=== PATIENT | male | born 1965 | race Caucasian/White ===

== ENCOUNTER 2016-02-21 12:06 | Inpatient (IN) ==
[2016-02-21] MEDS ORDERED: SODIUM CHLORIDE 0.9% 1,000 ML IV STA (12:22)
[2016-02-21] MEDS ORDERED: DICYCLOMINE 20 MG/2 ML AMP IM ONE ×2 (12:30→13:18)
[2016-02-21] MEDS ORDERED: SODIUM CHLORIDE 0.9% 2,000 ML IV STA (12:30)
[2016-02-21] MEDS ORDERED: METOCLOPRAMIDE 10 MG/2 ML VIAL IV STA (12:30)
[2016-02-21] MEDS ORDERED: PANTOPRAZOLE 40 MG VIAL IV STA (12:30)
[2016-02-21] MEDS ORDERED: ONDANSETRON 4 MG/2 ML VIAL IV STA (12:30)
[2016-02-21] MEDS ORDERED: LEVOFLOXACIN INJ 750 MG in PREMIX 1 EACH IV STA (12:34)
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
[2016-02-21] MEDS ORDERED: metroNIDAZOLE INJ 500 MG in PREMIX 1 EACH IV STA (12:42)
--- NOTE | 2016-02-21 13:00 | CT Report ---
CT head/brain wo con Indication: Altered mental status. Comparison: Head CT 11/06/2015. Technique: CT of the brain was performed without administration of intravenous contrast. Findings: There is no evidence of acute intracranial hemorrhage, mass, or infarction. Ventricles appear within normal limits. The basal cisterns are patent. No significant abnormality is demonstrated to involve the posterior fossa or cerebellum. Orbits and globes demonstrate no evidence of significant pathology. The paranasal sinuses are clear. No significant abnormality is demonstrated to involve the mastoid air cells. The calvarium and overlying soft tissues demonstrate no evidence of acute pathology. Impression: 1. No CT evidence of acute intracranial pathology. 02/21/2016 12:56 PM PROCEDURE INTERPRETED AT [facility] DEPARTMENT OF RADIOLOGY Final Report Signed by: Dr. Hong Fajardo
[2016-02-21 13:15] LABS: Basophils % 0.1 % (0.0-0.8); Eosinophils # 0.1 10*3/uL (0.0-0.87); Eosinophils % 0.3 % (0.00-10.9); Hematocrit 21.2 VOL% (42.0-52.0); Hemoglobin 7.4 GM/DL (14.0-18.0); Immature Granulocytes % 1.9 %; Lymphocytes # 2.2 10*3/uL (1.4-4.0); Lymphocytes % 8.4 % (21.2-54.2); Mean Corpuscular HGB Conc 34.9 GM/DL (32-36); Mean Corpuscular Hemoglobin 35 PG (27-34); Mean Corpuscular Volume 101.4 FL (87-102); Mean Platelet Volume 14.3 FL (9.6-12.0); Monocytes # 1.5 10*3/uL (0.11-0.8); Monocytes % 5.8 % (1.7-12.7); NRBC # 0.11 10*3/uL; Neutrophils # 21.5 10*3/uL (1.4-7.4); Neutrophils % 83.5 % (38.7-73.9); Platelet Count 123 10*3/uL (130-400); Red Blood Count 2.09 10*6/uL (3.8-5.5); Red Cell Distribution Width 20.9 % (9.3-17.3); White Blood Count 25.8 10*3/uL (4.5-13.71)
[2016-02-21] MEDS ORDERED: METOCLOPRAMIDE 10 MG/2 ML VIAL ONE (13:18)
[2016-02-21] MEDS ORDERED: PANTOPRAZOLE 40 MG VIAL IV ONE (13:18)
[2016-02-21] MEDS ORDERED: ONDANSETRON 4 MG/2 ML VIAL ONE (13:18)
--- NOTE | 2016-02-21 13:19 | EKG Report ---
Stationary ECG Study [facility] ER Test Date: 02/21/2016 1:17:13 PM Pat Name: MANJU SCHMID Department: Room: 130 Gender: M Conversion Worker: ELISABETH : 1965 Requested by: Skip Harris Order Number: [id number] Cynthia MD: PARAM GOODMAN Intervals Parks Rate: 89 P: 77 ME: 178 QRS: 90 QRSD: 99 T: 230 QT: 374 QTc: 421 Interpretive Statements SINUS RHYTHM ST DEVIATION AND MODERATE T-WAVE ABNORMALITY, CONSIDER ANTEROLATERAL ISCHEMIA ST DEVIATION AND MODERATE T-WAVE ABNORMALITY, CONSIDER INFEROLATREAL ISCHEMIA Electronically Signed On 02-22-16 10:42:35 [employer] by PARAM GOODMAN [email or web address]
[2016-02-21] MEDS ORDERED: metroNIDAZOLE 500 MG/100 ML PREMIX IV ONE (13:30)
[2016-02-21 13:32] LABS: Albumin 2.4 G/DL (3.4-5.0); Bilirubin,Total 1.9 MG/DL (0.2-1.0); Osmolality,Calculated 344.3 MOS/KG (273-304); Potassium 2.7 MMOL/L (3.5-5.1); Total Protein 6.5 G/DL (6.4-8.3)
[2016-02-21 13:33] LABS: Troponin I Only 0.198 NG/ML (0.00-0.045)
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
[2016-02-21 13:46] LABS: CKMB % 1.5 %
[2016-02-21 14:09] LABS: Lactic Acid 3.8 MMOL/L (0.4-2.0)
[2016-02-21] MEDS ORDERED: LEVOFLOXACIN INJ 150 ML IV ONE (14:27)
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
[2016-02-21] MEDS: SODIUM CHLORIDE 0.9% 1,000 ML IV ONE ×2 (14:54→15:39)
[2016-02-21] MEDS ORDERED: ONDANSETRON 4 MG/2 ML VIAL IV PRN (15:40)
[2016-02-21] MEDS ORDERED: POTASSIUM CHLORIDE INJ 20 MEQ in SODIUM CHLORIDE 0.9% 1,000 ML IV SCH (15:40)
[2016-02-21] MEDS ORDERED: FOLIC ACID 5 MG/1 ML VIAL IV SCH (15:40)
[2016-02-21] MEDS ORDERED: SODIUM CHLORIDE 0.9% 250 ML IV PRN (15:40)
[2016-02-21] MEDS ORDERED: ACETAMINOPHEN 325 MG TABLET PO PRN (15:40)
--- NOTE | 2016-02-21 15:47 | Ultrasound Report ---
US renal Bilateral Indication: Acute versus chronic renal failure. Comparison: None. Technique: Using transcutaneous probe, routine renal ultrasound was performed. Ultrasound images were captured and stored. Findings: Right kidney measures 11 cm in craniocaudal dimension. Left kidney measures 10.7 cm in craniocaudal dimension. No mass, hydronephrosis, or perinephric fluid collection is demonstrated to involve either kidney. There is a small punctate focus of echotexture within the lower pole medulla of the right kidney that may reflect a small calcification. Incidental note is made that the liver parenchyma demonstrates diffusely hyperechoic echotexture compared to the right renal cortex compatible with hepatic steatosis. Impression: 1. No evidence of obstructive uropathy. 2. Findings compatible with hepatic steatosis. 02/21/2016 3:43 PM PROCEDURE INTERPRETED AT [facility] DEPARTMENT OF RADIOLOGY Final Report Signed by: Dr. Hong Fajardo
[2016-02-21 16:16] LABS: Ammonia 179 UMOL/L (11-32)
[2016-02-21] MEDS: THIAMINE 200 MG/2 ML VIAL IV SCH (16:20)
[2016-02-21] MEDS: metroNIDAZOLE INJ 500 MG in PREMIX 1 EACH IV SCH (16:21)
[2016-02-21] MEDS: POTASSIUM CHLORIDE RIDER 10 MEQ in PREMIX 1 EACH IV SCH ×3 (16:22→18:56)
[2016-02-21 16:23] LABS: Hematocrit 18.5 VOL% (42.0-52.0)
[2016-02-21] MEDS: PANTOPRAZOLE 40 MG VIAL IV SCH ×2 (16:23→21:52)
[2016-02-21 16:25] LABS: Hemoglobin 6.2 GM/DL (14.0-18.0)
[2016-02-21 16:26] LABS: Magnesium 1.4 MG/DL (1.8-2.4); Thyroid Stimulating Hormone 3.96 uIU/ml (0.358-3.74)
[2016-02-21 16:35] LABS: INR 1.6; PT Patient Result 16.9 SECS; Partial Thromboplastin Time 32.3 SECS (0-40)
[2016-02-21] MEDS ORDERED: MAGNESIUM SULF RIDER 4 GM in PREMIX 1 EACH IV ONE (16:48)
[2016-02-21] MEDS: CLORAZEPATE 7.5 MG TABLET PO SCH ×2 (17:44→21:52)
[2016-02-21] MEDS: SODIUM BICARB INJ 100 MEQ, POTASSIUM CHLORIDE INJ 20 MEQ in DEXTROSE 5% 1,000 ML IV SCH (17:48)
[2016-02-21] MEDS: FOLIC ACID INJ 1 MG in SYRINGE 1 EACH IV SCH (17:49)
[2016-02-21] MEDS: FLUCONAZOLE INJ 200 MG in PREMIX 1 EACH IV SCH (17:49)
[2016-02-21 18:01] LABS: Apearance,Urine CLOUDY (Clear); Bilirubin,Urine Negative (Negative); Blood, Urine Moderate mg/dL (Negative); Glucose,Urine (UA) Negative (Negative); Ketones,Urine 5 mg/dL (Negative); Nitrite,Urine Negative (Negative); Protein,Urine 30 MG/DL; RBC,Urine 41 /HPF (0-4); Squamous Epithelial Cell,Urine Few /HPF (0-10); Urine Color Amber (Yellow); Urine Urobilinogen < 2.0 EU/DL (0.2-1.0); WBC,Urine 381 /HPF (0-6)
--- NOTE | 2016-02-21 18:48 | XRay Report ---
XR femur LT Indication: Left hip pain. Comparison: AP pelvis 02/21/2016. Abdominal series 09/30/2015. Fluoroscopic images of the left hip 09/06/2014. Technique: AP and lateral images of the left femur were submitted. Findings: Prior repair of the left femoral neck has occurred however there's been interval surgical resection osteolyses of the femoral neck with only a small amount femoral head remains articulated within the femoral acetabular joint. This appearance has not significantly changed since September of 2015. Note is made on CT performed at that time, soft tissue attenuation was present in the region of the repaired fracture. No definite erosive changes are noted on the current study. Impression: 1. Little change in the appearance of the left hip since September of 2015. Differential considerations include osteoarthritis is, surgical resection of the femoral neck, possibly pathologic process stable since September. 02/21/2016 6:43 PM PROCEDURE INTERPRETED AT [facility] DEPARTMENT OF RADIOLOGY Final Report Signed by: Dr. Hong Fajardo
--- NOTE | 2016-02-21 19:03 | XRay Report ---
XR abdomen complete w decub Indication: GI bleed Comparison: Abdominal series 02/21/2016; 1257 hrs. Technique: Supine AP abdomen as well as left lateral decubitus image of the abdomen was submitted. Findings: Lung bases are clear. No free intraperitoneal air is suggested. No organomegaly suggested. The bowel gas pattern demonstrates no evidence of acute pathology. Bones and soft tissues demonstrate no evidence of acute pathology. Impression: 1. No active process is demonstrated within the abdomen or pelvis. 02/21/2016 6:42 PM PROCEDURE INTERPRETED AT [facility] DEPARTMENT OF RADIOLOGY Final Report Signed by: Dr. Hong Fajardo
[2016-02-21] MEDS: NOREPINEPHRINE 8 MG in SODIUM CHLORIDE 0.9% 242 ML IV SCH (19:22)
[2016-02-21 20:15] LABS: Osmolality,Calculated 342.7 MOS/KG (273-304); Potassium 2.7 MMOL/L (3.5-5.1)
[2016-02-21 20:18] LABS: Calcium 5.7 MG/DL (8.5-10.1)
[2016-02-21] MEDS ORDERED: CALCIUM GLUCONATE 2,000 MG in SODIUM CHLORIDE 0.9% 100 ML IV ONE (20:42)
[2016-02-21 22:17] LABS: Hematocrit 23.9 VOL% (42.0-52.0)
[2016-02-21 22:23] LABS: Hemoglobin 8.3 GM/DL (14.0-18.0)
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
[2016-02-22] MEDS: HYDROmorphone 2 MG/1 ML VIAL IV PRN ×5 (00:18→23:41)
[2016-02-22] MEDS: metroNIDAZOLE INJ 500 MG in PREMIX 1 EACH IV SCH ×4 (00:19→23:40)
[2016-02-22] MEDS: SODIUM BICARB INJ 100 MEQ, POTASSIUM CHLORIDE INJ 20 MEQ in DEXTROSE 5% 1,000 ML IV SCH ×3 (02:23→18:19)
[2016-02-22 04:46] LABS: Hematocrit 28.2 VOL% (42.0-52.0); Hemoglobin 9.5 GM/DL (14.0-18.0)
[2016-02-22 04:57] LABS: Basophils % 0.1 % (0.0-0.8); Eosinophils % 0.2 % (0.00-10.9); Hematocrit 27.9 VOL% (42.0-52.0); Hemoglobin 9.5 GM/DL (14.0-18.0); Immature Granulocytes % 1.1 %; Immature Granulocytes Absolute 0.24 #; Lymphocytes # 1.2 10*3/uL (1.4-4.0); Lymphocytes % 5.8 % (21.2-54.2); Mean Corpuscular HGB Conc 34.1 GM/DL (32-36); Mean Corpuscular Hemoglobin 30 PG (27-34); Mean Corpuscular Volume 88.9 FL (87-102); Monocytes # 1.1 10*3/uL (0.11-0.8); Monocytes % 5.4 % (1.7-12.7); NRBC # 0.07 10*3/uL; Neutrophils # 18.6 10*3/uL (1.4-7.4); Neutrophils % 87.4 % (38.7-73.9); Platelet Count 118 10*3/uL (130-400); Red Blood Count 3.14 10*6/uL (3.8-5.5); White Blood Count 21.3 10*3/uL (4.5-13.71)
[2016-02-22 05:26] LABS: Albumin 2.1 G/DL (3.4-5.0); Bilirubin,Total 2.9 MG/DL (0.2-1.0); Calcium 6.5 MG/DL (8.5-10.1); Osmolality,Calculated 343.7 MOS/KG (273-304); Total Protein 5.7 G/DL (6.4-8.3)
[2016-02-22 05:45] LABS: Potassium 2.4 MMOL/L (3.5-5.1)
[2016-02-22 05:59] LABS: Anisocytosis 2+; Burr Cells 1+; Hypochromasia 2+; Lymphocytes 5 % (20-55); Macrocytosis 2+; Microcytosis 1+; Ovalocytes 1+; Platelet Estimate Decreased; Segmented Neutrophils 90 % (50-85); Target Cells 2+; Total Cells Counted 100
[2016-02-22] MEDS ORDERED: POTASSIUM CHLORIDE 20 MEQ TABLET PO ONE (07:27)
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
[2016-02-22] MEDS: NOREPINEPHRINE 8 MG in SODIUM CHLORIDE 0.9% 242 ML IV SCH ×2 (08:00→22:55)
[2016-02-22] MEDS: POTASSIUM CHLORIDE RIDER 10 MEQ in PREMIX 1 EACH IV SCH ×7 (08:00→15:30)
[2016-02-22 09:24] LABS: Hematocrit 33.3 VOL% (42.0-52.0); Hemoglobin 11.5 GM/DL (14.0-18.0)
[2016-02-22] MEDS: RIFAXIMIN 550 MG TABLET PO SCH ×2 (09:49→21:56)
[2016-02-22] MEDS: LACTULOSE 20 GM/30 ML UDCUP PO SCH ×3 (09:49→21:00)
[2016-02-22] MEDS: PANTOPRAZOLE 40 MG VIAL IV SCH ×2 (09:49→21:56)
[2016-02-22] MEDS: THIAMINE 200 MG/2 ML VIAL IV SCH (09:50)
[2016-02-22] MEDS: FOLIC ACID INJ 1 MG in SYRINGE 1 EACH IV SCH (09:50)
[2016-02-22] MEDS: NYSTATIN POWDER 15 GM BOTTLE TOP SCH ×3 (10:56→23:42)
[2016-02-22] MEDS: MEROPENEM 500 MG in SODIUM CHLORIDE 0.9% 100 ML IV SCH ×2 (10:56→21:56)
--- NOTE | 2016-02-22 10:58 | Nephrology Progress Note ---
Nephrology - PN: Subj Interval history: He is significantly more alert today. However he is slow to respond. Exam (PN)-Nephrology - Vital Signs Vital signs: Period Temp Pulse Resp BP Sys/Jacob Pulse Ox Last 24 Hr 95.8 F-98.8 F 81-115 10-24 55-174/38-140 100-100 Exam: Gen.: Alert but mildly confused ENT: Pupils equal round reactive to light. EOMs intact. Neck: Supple. No JVD or bruit. Cardiovascular: Regular rate and rhythm. No murmur rub or gallop Lungs: Few scattered rhonchi Abdomen: Soft. Nontender. Positive bowel sounds. No organomegaly Extremities: No edema - Lab 02/22/16 09:10 02/22/16 02:45 Most recent lab results Calcium 6.5 MG/DL (8.5-10.1) L 02/22/16 02:45 Magnesium 2.5 MG/DL (1.8-2.4) H 02/22/16 02:41 Assessment and Plan (1) Acute renal failure Status: Acute Assessment and plan: 50-year-old man admitted with: * Acute renal failure. This is due to hypotension and volume depletion. Renal function is slightly better today * Metabolic acidosis. Continue IV bicarbonate * Hypokalemia. Continue supplement * Hypertension * Anemia. Improved after transfusion * GI bleeding * Alcohol abuse. Continue withdrawal prophylaxis Current Visit: No (2) Severe dehydration Status: Acute Current Visit: Yes (3) Alcoholic encephalopathy Status: Acute Current Visit: No (4) Diarrhea Status: Acute Current Visit: No (5) Hypokalemia Status: Acute Current Visit: No (6) Hypotension Status: Acute Current Visit: No (7) Melena Status: Acute Current Visit: No (8) Acute blood loss anemia Status: Resolved Current Visit: No Specialty Discharge - Follow Up or Referrals - Discharge Medications No Action Lisinopril [Prinivil] 10 mg PO DAILY tablet chlordiazePOXIDE [Librium] 25 mg PO Q6H #12 capsule Pantoprazole Tab [Protonix Tab] 40 mg PO DAILY #30 tablet
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
--- NOTE | 2016-02-22 12:06 | Hospitalist Progress Note ---
Assessment and Plan (1) Septic shock Status: Acute Assessment and plan: cont ns at 150 ml/hr, change to meropenem as we dont have a source, blood cultures pending, stool studies negative, dr Michael to see in am, cont pressors , WBC is down to 21. Current Visit: Yes (2) Acute on chronic renal failure Status: Acute Assessment and plan: renal us shows normal sized kidneys, improving with IV hydration but his potassium remains low. Dr. Chamorro following. Current Visit: Yes (3) Delirium tremens Status: Acute Assessment and plan: tranxene decreased due to renal failure. Low magnesium replaced yesterday repeat level normal at 2.5. Continue thiamine and folate IV Current Visit: Yes (4) Severe dehydration Status: Acute Assessment and plan: severe dehydration, continue aggressive NS Current Visit: Yes (5) Fracture of femoral neck, left Status: Acute Assessment and plan: Er MD reports displacement, Dr Senior to discuss surgery options Current Visit: No (6) Intractable diarrhea Status: Acute Assessment and plan: Stool is negative for C. difficile. Stool is also negative for enteric pathogens. Stool is positive for blood. Current Visit: No (7) Acute blood loss anemia Status: Resolved Assessment and plan: Dr. Rinaldi believes patient has an upper GI bleed. Patient received 3 units of PRBC, continue Protonix IV Current Visit: No (8) Hypokalemia Status: Resolved Assessment and plan: Gave patient another 60 mEq of IV potassium and 40 mEq p.o. 1 and will continue supplementing his potassium through his IV fluids. Current Visit: No Hospitalist: Subjective Interval history: Patient's feeling better today and remembers talking to be yesterday. His sister made him a DNR last night. He is still on pressors this morning. We will continue the IV hydration. Dr. Senior and I spoke about his case and Dr. Rinaldi and I discussed his case. Dr. Senior told him if he can get over this and agree to do rehab they could actually replace his hip. All his pain is in his hip. No diarrhea overnight. Source of sepsis not known. Exam - Constitutional Vitals: Period Temp Pulse Resp BP Sys/Jacob Pulse Ox Last 24 Hr 95.8 F-98.8 F 81-115 10-24 55-174/38-140 100-100 Exam: HR-RRR lungs-ctab GI-+bs, soft and nt neuro moving all extremities, alert and oriented times 2 psych normal mood and flat affect general no acute distress Results - Labs CBC & BMP: 02/22/16 09:10 02/22/16 02:45 Lab Results: I have reviewed the past 24 hour labs Labs: Stool is negative for C. difficile, but positive for occult blood, no enteric pathogens noted., Blood cultures pending, urine culture negative. Lactic acid remains elevated 3.5 - Diagnostic Findings Procedure: KUB x-ray: report reviewed by me (No obstruction noted), Ultrasound: report reviewed by me (Normal size kidneys but fatty liver.) Quality Measures - VTE Contraindication to Pharmacological VTE Prophylaxis: Active Bleeding - Stroke Symptom Onset Unknown: No Specialty Discharge - Follow Up or Referrals - Discharge Medications No Action Lisinopril [Prinivil] 10 mg PO DAILY tablet chlordiazePOXIDE [Librium] 25 mg PO Q6H #12 capsule Pantoprazole Tab [Protonix Tab] 40 mg PO DAILY #30 tablet
[2016-02-22] MEDS: CLORAZEPATE 7.5 MG TABLET PO SCH (13:17)
--- NOTE | 2016-02-22 16:16 | Ultrasound Report ---
History: Alcoholic cirrhosis Date: 02/22/2016 Study: Abdominal ultrasound complete Comparison exam: No recent abdominal ultrasound Real-time ultrasound images were captured and archived. The liver measures mildly enlarged at 19 cm length. The hepatic parenchyma has some mild to moderate diffuse heterogeneity such as that which can be seen with fatty infiltration of the liver. There is no definite discrete hepatic mass. There is hepatopedal flow in the portal vein. There is no abnormal biliary dilatation. The common bile duct measures 4.2 mm diameter. There is a moderate amount of medium echogenic material in the lumen of the gallbladder compatible with sludge, though no classic shadowing gallstone is seen. The pancreas is obscured by bowel gas. The right kidney measures 11.0 cm length; the left kidney measures 11.1 cm. There is no renal mass or hydronephrosis. The spleen measures 41 x 110 x 54 mm and is without focal mass. The abdominal aorta and IVC are obscured by bowel gas. Impression: Sludge in the lumen of the gallbladder. No classic shadowing gallstones Mild hepatomegaly. No discrete hepatic mass is seen. There is some scattered heterogeneity of the hepatic parenchyma such as that which can be seen with fatty infiltration of the liver. Some of midline structures are obscured by bowel gas. PROCEDURE INTERPRETED AT [facility] DEPARTMENT OF RADIOLOGY Final Report Signed by: Dr. Elizabeth Sanchez
[2016-02-22] MEDS: FLUCONAZOLE INJ 200 MG in PREMIX 1 EACH IV SCH (16:30)
[2016-02-22] MEDS: CLORAZEPATE 7.5 MG TABLET PO PRN (23:20)
[2016-02-22] MEDS: DESITIN 4OZ/NYSTATIN 15 GRAM MIXTURE PASTE TOP SCH (23:42)
[2016-02-23] MEDS: SODIUM BICARB INJ 100 MEQ, POTASSIUM CHLORIDE INJ 20 MEQ in DEXTROSE 5% 1,000 ML IV SCH ×2 (01:50→07:52)
[2016-02-23] MEDS: HYDROmorphone 2 MG/1 ML VIAL IV PRN ×4 (02:42→21:00)
[2016-02-23 02:47] LABS: Basophils % 0.2 % (0.0-0.8); Eosinophils # 0.3 10*3/uL (0.0-0.87); Hematocrit 31.4 VOL% (42.0-52.0); Hemoglobin 10.8 GM/DL (14.0-18.0); Immature Granulocytes % 0.8 %; Lymphocytes # 1.9 10*3/uL (1.4-4.0); Lymphocytes % 7.8 % (21.2-54.2); Mean Corpuscular HGB Conc 34.4 GM/DL (32-36); Mean Corpuscular Hemoglobin 30 PG (27-34); Mean Corpuscular Volume 87.7 FL (87-102); Mean Platelet Volume 13.8 FL (9.6-12.0); Monocytes # 1.5 10*3/uL (0.11-0.8); Monocytes % 6.4 % (1.7-12.7); NRBC # 0.03 10*3/uL; Neutrophils # 20.1 10*3/uL (1.4-7.4); Neutrophils % 83.8 % (38.7-73.9); Platelet Count 122 10*3/uL (130-400); Red Blood Count 3.58 10*6/uL (3.8-5.5); Red Cell Distribution Width 24.1 % (9.3-17.3)
[2016-02-23 03:20] LABS: Lactic Acid 1.9 MMOL/L (0.4-2.0)
[2016-02-23 03:21] LABS: Albumin 2.1 G/DL (3.4-5.0); Bilirubin,Direct 1.4 MG/DL (0.0-0.20); Bilirubin,Indirect 1.4 MG/DL (0.0-1.0); Bilirubin,Total 2.8 MG/DL (0.2-1.0); Total Protein 5.8 G/DL (6.4-8.3)
[2016-02-23 03:23] LABS: Albumin 2.1 G/DL (3.4-5.0); Bilirubin,Total 2.5 MG/DL (0.2-1.0); Calcium 7.1 MG/DL (8.5-10.1); Magnesium 2.1 MG/DL (1.8-2.4); Osmolality,Calculated 331.7 MOS/KG (273-304); Potassium 2.9 MMOL/L (3.5-5.1); Total Protein 5.9 G/DL (6.4-8.3)
[2016-02-23 03:55] LABS: Burr Cells Few; Platelet Estimate Adequate; Target Cells Few
[2016-02-23 03:57] LABS: Macrocytosis Slight; Ovalocytes Few
[2016-02-23 03:58] LABS: Anisocytosis Slight
[2016-02-23] MEDS: NOREPINEPHRINE 8 MG in SODIUM CHLORIDE 0.9% 242 ML IV SCH ×2 (07:28→17:24)
[2016-02-23] MEDS: metroNIDAZOLE INJ 500 MG in PREMIX 1 EACH IV SCH ×3 (07:52→23:53)
[2016-02-23] MEDS: THIAMINE 200 MG/2 ML VIAL IV SCH (08:00)
[2016-02-23] MEDS: FOLIC ACID INJ 1 MG in SYRINGE 1 EACH IV SCH (08:01)
[2016-02-23] MEDS: PANTOPRAZOLE 40 MG VIAL IV SCH ×2 (08:02→22:11)
[2016-02-23] MEDS: LACTULOSE 20 GM/30 ML UDCUP PO SCH ×3 (08:02→21:30)
[2016-02-23] MEDS: RIFAXIMIN 550 MG TABLET PO SCH ×2 (08:02→21:30)
[2016-02-23] MEDS: NYSTATIN POWDER 15 GM BOTTLE TOP SCH ×3 (08:03→22:59)
[2016-02-23] MEDS: MEROPENEM 500 MG in SODIUM CHLORIDE 0.9% 100 ML IV SCH ×2 (08:03→22:12)
[2016-02-23] MEDS: DESITIN 4OZ/NYSTATIN 15 GRAM MIXTURE PASTE TOP SCH ×2 (08:12→22:59)
[2016-02-23] MEDS ORDERED: POTASSIUM CHLORIDE RIDER 20 MEQ in PREMIX 1 EACH IV PRN (08:20)
[2016-02-23] MEDS ORDERED: POTASSIUM CHLORIDE RIDER 10 MEQ in PREMIX 1 EACH IV PRN (08:20)
[2016-02-23] MEDS ORDERED: LIDOCAINE 100 MG/5 ML SYRINGE ONE (08:57)
[2016-02-23] MEDS ORDERED: PROPOFOL 200 MG/20 ML VIAL IV ONE (08:57)
[2016-02-23] MEDS ORDERED: INFLUENZA VIRUS VACCINE 0.5 ML SYRINGE IM ONE (09:00)
--- NOTE | 2016-02-23 09:31 | Operative Note ---
Date of procedure: 02/23/16 Pre-op diagnosis: patient with alcoholism, nausea/vomiting, hematocrit down to 18% Post-op diagnosis: other (1.2 cm duodenal bulb deep ulcer noted, 18 cm of LA class D erosive esophagitis, small hiatal hernia noted incidentally along with moderately severe patchy gastritis. These were all causes that would account for the patient's blood loss with hematocrit of 18% up to 31% now status post 4 unit transfusion.) Procedure: PROCEDURE: Esophagogastroduodenoscopy (EGD) with cold biopsy for pathology REFERRING PHYSICIAN: Kayleen Rouse M.D. INDICATIONS: This is a patient who is a known alcoholic who is being checked for esophageal varices given his hematocrit drop to 18%, this is up to 31% status post 4 unit blood transfusion and melena-- rule out esophageal varices. The prior H&P was reviewed and interrim changes are as noted: No change from GI consultation yesterday ENDOSCOPIST: Claude Rinaldi MD ENDOSCOPE: Olympus Video 100 System upper endoscope ASA CLASS: 4 EXAM: CV: regular rate and rhythm Respiratory: Clear without wheezes Abdominal: active bowel sounds MEDICATION: Per nursing anesthesia protocol, see their notes PROCEDURE: After discussion of the potential risks and benefits of upper endoscopy, the informed consent was obtained. The patient was then placed in the left lateral decubitus position where sedation was achieved as noted above. Esophageal intubation was performed without difficulty, and the endoscope was advanced through the esophagus, stomach and duodenum. A slow withdrawal was then performed with retroflexion in the stomach for careful inspection of the incisura angularis, fundus and cardia. The scope was then returned to a neutral position and withdrawn through the esophagus. The patient tolerated the procedure well and without complication. BIOPSIES: Gastric antrum/body and duodenum PHOTOGRAPHS: Obtained FINDINGS: Hypopharynx and Larynx: Normal Esohagoscopy Upper and middle thirds: LA class D erosive esophagitis stretching between 26 cm and 44 cm Lower third LA class D erosive esophagitis stretching between 26 cm and 44 cm Esophogastric junctions: No gross evidence of stricturing, esophagitis as noted above, no gross evidence of Villanueva's Gastroscopy: Cardia/Fundus: 2 cm hiatal hernia retained fluid in the stomach with some retained food as well Body: Moderately severe patchy gastritis noted throughout, biopsied, this appeared to be a toxic gastritis Antrum and pylorus moderately severe patchy gastritis, biopsied for Helicobacter pylori Duodenoscopy: Bulb moderate erosive duodenitis biopsied with a posterior 1.2 cm bulb ulcer thought to be the source the patient's blood loss along with the esophagitis Second and third portions: Erosive duodenitis, biopsied IMPRESSION: 1.2 cm duodenal bulb deep ulcer noted, 18 cm of LA class D erosive esophagitis, small hiatal hernia noted incidentally along with moderately severe patchy gastritis. These were all causes that would account for the patient's blood loss with hematocrit of 18% up to 31% now status post 4 unit transfusion. RECOMMENDATIONS: Follow up for biopsy results in 1-2 weeks by phone [phone] Continue anti-gastroesophageal reflux measures (avoid carbonated and acidic beverages, avoid eating within 2 hours of bedtime, avoid tight fitting clothing , and elevate the front bed posts 6 inches prior to sleeping. Would continue the patient on IV Protonix until he is able to take by mouth. Full liquid diet for the present time until he is able to tolerate this by mouth and then we can advance to a low sodium 60 g protein diet. He can be moved out of the unit as he does not have variceal bleeding, and did not require banding. Claude Rinaldi MD COPY TO: Kayleen Rouse M.D. Anesthesia: MAC Surgeon / Physician: Claude Rinaldi Estimated blood loss: minimal Specimens: other (duodenum, gastric antrum/body) Condition: stable Disposition: post procedure unit (G.I. Suite) Results - Labs CBC & BMP: 02/23/16 02:24 02/23/16 02:24 Discharge Plan - Discharge Medications No Action Lisinopril [Prinivil] 10 mg PO DAILY tablet chlordiazePOXIDE [Librium] 25 mg PO Q6H #12 capsule Pantoprazole Tab [Protonix Tab] 40 mg PO DAILY #30 tablet - Follow Up or Referral - Forms/Instructions
--- NOTE | 2016-02-23 09:39 | Gastrointestinal Progress Note ---
Assessment and Plan (1) Upper GI bleed Status: Resolved Assessment and plan: As patient has hematocrit of 18% now status post 4 unit transfusion is up to 33 % and although he does not have melena on physical exam today this was reported previously along with some maroon stools. I suspect he may have esophageal varices with his cirrhosis and we will need to verify this with upper endoscopy and consider doing banding if varices are discovered. Other etiologies include potentially gastritis, peptic ulcer disease, toxic gastritis , portal hypertensive gastropathy, Jaida-Echavarria tears, gastric cancer and potentially colon cancer as well. I strongly suspect he has not had a colonoscopy nor upper endoscopy in the past. We will proceed with upper endoscopy tomorrow in order to better define the cause for his bleeding. Risks of the procedure include but are not limited to: Bleeding, infection, perforation, cardiac and pulmonary compromise. 02/23/16-- The upper endoscopy demonstrated the following results: 1.2 cm duodenal bulb deep ulcer noted, 18 cm of LA class D erosive esophagitis, small hiatal hernia noted incidentally along with moderately severe patchy gastritis. These were all causes that would account for the patient's blood loss with hematocrit of 18% up to 31% now status post 4 unit transfusion. Would switch him over to a full liquid diet and once he is able tolerate this without throwing up we can consider a 2 g sodium diet/60 g protein diet. We need to continue Protonix 40 mg IV twice a day again until he is able take by mouth without throwing up. He could certainly be transferred from the ICU to the floor today in my opinion. Current Visit: No (2) Alcoholic cirrhosis of liver without ascites Status: Acute Assessment and plan: This patient has several factors that make me believe that he has cirrhosis. The elevated MCV, thrombocytopenia, his alcohol intake history of a fifth of whiskey per day and his hepatic encephalopathy all point in this direction. We have not yet had a ultrasound of the abdomen but we will get this to look for evidence of ascites and masses within the liver. We'll also check an AFP level as well. He will need to stop drinking entirely. 02/23/16-- no gross evidence of varices, there does appear to be some fairly significant toxic gastritis in the stomach likely produced by the exposure to alcohol versus Helicobacter pylori, biopsies are pending. Current Visit: Yes (3) Acute blood loss anemia Status: Resolved Assessment and plan: Again the patient has guaiac positive stools and decreased hematocrit to 18% now status post 4 unit blood transfusion. See differential noted above. 02/23/16-- Now status post 4 units, hematocrit is up to 31%. Current Visit: No (4) Chronic diarrhea of unknown origin Status: Acute Assessment and plan: This patient has a profound hypokalemia indicating that nausea and vomiting or more likely diarrhea has been predominant for some time. These are being replaced and the patient is being rehydrated he has renal dysfunction and so we need to be careful about replacing his potassium however I need to see these levels above 3 in order to tolerate the anesthesia for his upcoming upper endoscopy. He is being aggressively replaced at this time. 02/23/16--Potassium levels remained suboptimal, continue replacement. Current Visit: Yes (5) Duodenal ulcer with hemorrhage Status: Acute Assessment and plan: The patient does have a 1.2 cm deep duodenal ulcer which may be medication induced versus toxic versus Helicobacter pylori induced. Biopsies of the stomach pending to look for Helicobacter pylori, avoid NSAIDs. Current Visit: Yes (6) Esophagitis, erosive Status: Acute Assessment and plan: Noted on endoscopy 18 cm of LA class D erosive esophagitis on 02/23/16 Current Visit: Yes Gastroenterology - PN: Subj Interval history: No new complaints. Exam (Progress Note) - Constitutional Vitals: Period Temp Pulse Resp BP Sys/Jacob Pulse Ox Last 24 Hr 97.1 F-97.6 F 84-112 11-20 75-129/41-88 94-100 General appearance: mild distress - Head Head exam: Present: other (multiple scalp tattoos) - Eye Eye exam: Present: conjunctival injection. Absent: scleral icterus - Respiratory Respiratory exam: Present: clear to auscultation bilaterally. Absent: rhonchi, wheezes - Cardiovascular Cardiovascular exam: Present: regular rate and rhythm - GI/Abdominal GI/Abdominal exam: Present: normal bowel sounds, tenderness (epigastric and right upper quadrant pain), soft. Absent: ascites, distended, rebound - Neurological Exam Neurological exam: Present: alert, oriented X3, CN II-XII intact. Absent: motor sensory deficit - Skin Skin exam: Present: warm Results - Labs CBC & BMP: 02/23/16 02:24 02/23/16 02:24 Specialty Discharge - Follow Up or Referrals - Discharge Medications No Action Lisinopril [Prinivil] 10 mg PO DAILY tablet chlordiazePOXIDE [Librium] 25 mg PO Q6H #12 capsule Pantoprazole Tab [Protonix Tab] 40 mg PO DAILY #30 tablet
--- NOTE | 2016-02-23 09:40 | Anesthesia ---
Anesthesia Post OP - Post Ansesthetic Evaluation Patient seen in post op: Yes Resp: within normal limits CV: within normal limits Mental: within normal limits Temp: within normal limits Qovj-De-Lilpzslsn: within normal limits Nausea and Vomiting: within normal limits Pain: within normal limits
[2016-02-23] MEDS ORDERED: oxyCODONE/ACETAMINOPHEN 5-325 MG TABLET PO PRN (10:32)
[2016-02-23] MEDS: POTASSIUM CHLORIDE IV SCH ×3 (12:43→20:15)
[2016-02-23] MEDS: SODIUM BICARB IV SCH ×3 (12:43→20:15)
[2016-02-23] MEDS: POTASSIUM CHLORIDE RIDER 10 MEQ in PREMIX 1 EACH IV PRN ×6 (12:43→23:54)
[2016-02-23] MEDS: DEXTROSE 5% IV SCH ×3 (12:43→20:15)
--- NOTE | 2016-02-23 13:02 | Hospitalist Progress Note ---
Assessment and Plan (1) Septic shock Status: Acute Assessment and plan: cont ns at 150 ml/hr, continue to wean off pressors. Dr. Myers to see tomorrow. His white count continues to climb despite excellent antibiotic coverage. Continue meropenem and IV Flagyl. C. difficile has been negative. Current Visit: Yes (2) Acute on chronic renal failure Status: Acute Assessment and plan: Continues to improve with hydration. Renal following. Current Visit: Yes (3) Delirium tremens Status: Acute Assessment and plan: Has resolved. Continue thiamine and folate. Ammonia level improved with lactulose and rifaximin Current Visit: Yes (4) Severe dehydration Status: Acute Assessment and plan: resolving with hydration Current Visit: Yes (5) Fracture of femoral neck, left Status: Acute Assessment and plan: Dr. Senior feels he needs a total hip replacement. Patient is willing to go to rehab. Current Visit: No (6) Intractable diarrhea Status: Acute Assessment and plan: Stool is negative for C. difficile. Stool is also negative for enteric pathogens. Stool is positive for blood. Current Visit: No (7) Acute blood loss anemia Status: Resolved Assessment and plan: Hemoglobin 10.8 today. Status post EGD today showed erosive duodenitis, moderately severe patchy gastritis, 1.2 cm duodenal bulb deep ulcer, class D erosive esophagitis. Continue Protonix. Current Visit: No (8) Hypokalemia Status: Resolved Assessment and plan: Continue aggressive replacement. Repeat BMP at 1700. Current Visit: No Hospitalist: Subjective Interval history: Patient dying to eat. He says he really wants a tunafish sandwich but I can only give him full liquids today. Patient had an EGD today which still showed an ulcer. He still on pressors but were able to wean him down. He is significantly improved. He is willing to go to rehab after he gets his hip replacement. The pain is mainly in his hip and I am increasing his Dilaudid and adding Percocet. His white count however is continued to elevate. Dr. Michael will be back tomorrow. Only having diarrhea at times. For C. difficile negative. Asked him to send another. Exam - Constitutional Vitals: Period Temp Pulse Resp BP Sys/Ajcob Pulse Ox Last 24 Hr 97.1 F-97.4 F 84-115 11-20 75-130/47-88 94-100 Exam: HR-RRR lungs-ctab GI-+bs, soft and nt neuro moving all extremities, alert and oriented times 3 psych agitated mood and flat affect general mild acute distress due to pain Results - Labs CBC & BMP: 02/23/16 02:24 02/23/16 02:24 Lab Results: I have reviewed the past 24 hour labs Labs: Blood cultures 2 are negative. Urine culture growing gram-positive cocci identity pending. Quality Measures - VTE Contraindication to Pharmacological VTE Prophylaxis: Active Bleeding - Stroke Symptom Onset Unknown: No Specialty Discharge - Follow Up or Referrals - Discharge Medications No Action Lisinopril [Prinivil] 10 mg PO DAILY tablet chlordiazePOXIDE [Librium] 25 mg PO Q6H #12 capsule Pantoprazole Tab [Protonix Tab] 40 mg PO DAILY #30 tablet
[2016-02-23] MEDS: POTASSIUM CHLORIDE 20 MEQ TABLET PO SCH ×3 (14:00→16:02)
[2016-02-23] MEDS: FLUCONAZOLE INJ 200 MG in PREMIX 1 EACH IV SCH (16:02)
[2016-02-23 18:29] LABS: Calcium 6.8 MG/DL (8.5-10.1); Osmolality,Calculated 325.6 MOS/KG (273-304); Potassium 4.5 MMOL/L (3.5-5.1)
[2016-02-24] MEDS: POTASSIUM CHLORIDE RIDER 10 MEQ in PREMIX 1 EACH IV PRN (01:21)
[2016-02-24] MEDS: HYDROmorphone 2 MG/1 ML VIAL IV PRN ×2 (02:25→06:25)
[2016-02-24] MEDS: MEROPENEM 500 MG in SODIUM CHLORIDE 0.9% 100 ML IV SCH ×2 (02:50→09:30)
[2016-02-24] MEDS: DEXTROSE 5% IV SCH ×2 (04:00→07:52)
[2016-02-24] MEDS: SODIUM BICARB IV SCH ×2 (04:00→07:52)
[2016-02-24] MEDS: POTASSIUM CHLORIDE IV SCH ×2 (04:00→07:52)
[2016-02-24 04:11] LABS: Basophils # 0.1 10*3/uL (0.0-0.2); Basophils % 0.3 % (0.0-0.8); Eosinophils # 0.3 10*3/uL (0.0-0.87); Eosinophils % 1.9 % (0.00-10.9); Hematocrit 30.1 VOL% (42.0-52.0); Hemoglobin 9.7 GM/DL (14.0-18.0); Immature Granulocytes % 0.8 %; Immature Granulocytes Absolute 0.14 #; Lymphocytes # 1.4 10*3/uL (1.4-4.0); Lymphocytes % 7.7 % (21.2-54.2); Mean Corpuscular HGB Conc 32.2 GM/DL (32-36); Mean Corpuscular Hemoglobin 30 PG (27-34); Mean Corpuscular Volume 92.3 FL (87-102); Monocytes % 5.6 % (1.7-12.7); Neutrophils # 14.7 10*3/uL (1.4-7.4); Neutrophils % 83.7 % (38.7-73.9); Platelet Count 94 10*3/uL (130-400); Red Blood Count 3.26 10*6/uL (3.8-5.5); White Blood Count 17.6 10*3/uL (4.5-13.71)
[2016-02-24 04:34] LABS: Platelet Estimate Decreased
[2016-02-24 04:35] LABS: Target Cells 1+
[2016-02-24 04:36] LABS: Hypochromasia 1+; Microcytosis Slight
[2016-02-24 04:56] LABS: Albumin 1.8 G/DL (3.4-5.0); Calcium 7.1 MG/DL (8.5-10.1); Osmolality,Calculated 323.4 MOS/KG (273-304); Potassium 4.3 MMOL/L (3.5-5.1); Total Protein 5.2 G/DL (6.4-8.3)
[2016-02-24] MEDS ORDERED: FUROSEMIDE 40 MG/4 ML VIAL IV ONE (07:50)
[2016-02-24] MEDS: PANTOPRAZOLE 40 MG VIAL IV SCH ×2 (08:05→21:00)
[2016-02-24] MEDS: THIAMINE 200 MG/2 ML VIAL IV SCH (08:07)
[2016-02-24] MEDS: LACTULOSE 20 GM/30 ML UDCUP PO SCH ×4 (08:09→21:28)
[2016-02-24] MEDS: RIFAXIMIN 550 MG TABLET PO SCH ×3 (08:09→21:28)
[2016-02-24] MEDS: NYSTATIN POWDER 15 GM BOTTLE TOP SCH ×3 (08:09→21:29)
[2016-02-24] MEDS: DESITIN 4OZ/NYSTATIN 15 GRAM MIXTURE PASTE TOP SCH ×2 (08:09→21:29)
[2016-02-24] MEDS: metroNIDAZOLE INJ 500 MG in PREMIX 1 EACH IV SCH ×3 (08:16→23:59)
[2016-02-24] MEDS: FOLIC ACID INJ 1 MG in SYRINGE 1 EACH IV SCH (08:16)
[2016-02-24] MEDS ORDERED: NALOXONE 0.4 MG/ML VIAL IV ONE (09:12)
--- NOTE | 2016-02-24 09:43 | XRay Report ---
Referring Physician: Kayleen Rouse Exam: XR chest 1V portable Date: February 24, 2016 at 9:08 AM Reason: Rhonchi Comparison: Chest one view portable February 21, 2016 Findings: The cardiac silhouette is normal in size. No focal consolidation, pneumothorax or pleural effusion is identified. No acute osseous process is seen. Note is made of probable calcified plaque at the left carotid bifurcation. Impression: No acute cardiopulmonary process is identified. PROCEDURE INTERPRETED AT [facility] DEPARTMENT OF RADIOLOGY Final Report Signed by: Dr. Braden Matias
[2016-02-24 09:47] LABS: ABG Base Excess 2.5 MMOL/L (-2.5-2.5); ABG HCO3 26.7 MMOL/L (20-26); ABG Oxygen Saturation 97.5 % (95-100); ABG PCO2 47.7 MM HG (35-48); ABG PH 7.381 (7.35-7.45); ABG PO2 93.4 MM HG (80-95); ABG TCO2 25.7 MMOL/L (23-27)
--- NOTE | 2016-02-24 10:11 | Infectious Disease Consult ---
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 COntinue to monitor and adjust antibiotic doses accordingly. Current Visit: No (6) Leukocytosis Status: Acute Assessment and plan: Cause unclear, it is improving since admission. Could be stress response related to apparent GI bleed. There possible UTI based on UA, though only a few colonies of GPCs isolated. Patient came from home and is low risk for infecton with MDROs. He was hypotensive on admission but that could have been from dehydration rather than septic shock. Recommendations: 1. Stop meropenem 2. Start ceftraixone 3. Can continue Flagyl for now, pending GI work-up 4. I am not sure why he is on fluconazole consider stopping it 5. F/U pending cultures THank you very much for the consult. Will follow. D/W Dr Rouse Current Visit: Yes History of Present Illness Chief complaint: Leukocytosis History of present illness: History obtained from review of patient's chart as he was confused. Mr. Pepper is a 50 year old male brought to hospital for AMS. Apparently he has h/o alcohilism and chronic diarrhea. He has been bedbound for about 1 year. It seems he became confused and was brought to the hospital. HE was noted to be hypotensive and required vasopressor support. WBC was 25 and creat was over 11. He has not required dialysis. Leukocytosis has persisted but he has had no fever since admission and there has been no sign of obvious infection. I am asked to advise further on the antibiotics. He was weaned off pressors today. Home Medications Medication Instructions Recorded Confirmed Type Lisinopril [Prinivil] 10 mg PO DAILY tablet 09/08/14 02/21/16 Rx Pantoprazole Tab [Protonix Tab] 40 mg PO DAILY #30 tablet 10/02/15 02/21/16 Rx chlordiazePOXIDE [Librium] 25 mg PO Q6H #12 capsule 10/02/15 02/21/16 Rx Allergies Allergy/AdvReac Type Severity Reaction Status Date / Time No Known Allergies Allergy Unverified 09/30/15 01:21 ROS unobtainable: due to mental status Medical,Surgical,& Family Hx - Medical History Cardio: History of: Hypertension Psychological: History of: Behavior Problems, Psychiatric/Substance Abuse Tx, Violent Behavior, Psychiatric Problems HEENT: History of: Ear Problem Endocrine: No history of: Diabetes Mellitus (NIDDM) Respiratory: History of: Obstructive Sleep Apnea Genitourinary: History of: Bladder Problem (Overactive bladder), Prostate Problems Gastrointestinal: History of: Diverticulitis/ Diverticulosis, GERD, Gastrointestinal Bleed Musculoskeletal: History of: Back/Neck Problems (CHRONIC) Other: History of: Skin Problems (buttock rash) - Surgical History Abdominal Surgeries: Surgical HX of: Colonoscopy Orthopedic Surgeries: Surgical HX of;: Orthopedic Surgery (left hip surgery), Total Hip Replacement (right) - Family History Family History: Reports;: Family Cancer (sister, brother), Family Diabetes ( Mother), Family Heart Disease (Maternal grandfather) - Social History Smoking Status: Current every day smoker Frequency of Alcohol Use: None Type of Drug Use: None Infectious Disease Exam H&P - Constitutional Vitals: Vital Signs Temp Pulse Resp BP Pulse Ox 97.3 F L 113 H 12 77/51 95 02/24/16 04:15 02/24/16 06:40 02/24/16 06:40 02/24/16 06:40 02/24/16 06:40 Intake and Output 02/23/16 02/24/16 02/24/16 23:59 07:59 15:59 Intake Total 1780 / 1780 1420 / 1420 250.2 / 250.2 Output Total 500 / 500 925 / 925 Balance 1280 / 1280 495 / 495 250.2 / 250.2 Intake: IV 1720 / 1720 1420 / 1420 250.2 / 250.2 Diflucan Inj 200 mg In 100 / 100 Premix 1 Each @ 100 mls/ hr IV Q24H [facility] Rx#: [id number] Folic Acid Inj 5 mg/ml In 0.2 / 0.2 Syringe 1 Each @ 999 mls /hr IV DAILY [facility] Rx#: [id number] Merrem 500 mg In Ns 100 100 / 100 ml @ 200 mls/hr IV Q12H [facility] Rx#:[id number] Levophed 8 mg In Ns 242 150 / 150 ml @ 2 MCG/MIN 3.75 mls/ hr IV TITRATE [facility] Rx#: [id number] Potassium Chloride [place] 300 / 300 200 / 200 10 Meq/100 ml In Premix 1 Each @ 100 mls/hr IV . PER PROTOCOL PRN Rx#: [id number] Sodium Bicarb Inj 50 Meq/ 1120 / 1120 1120 / 1120 50 ml KCl Inj 40 Meq In D5 1,000 ml @ 150 mls/hr IV .[id number] [facility] Rx#: [id number] Flagyl Inj 500 mg In 100 / 100 100 / 100 100 / 100 Premix 1 Each @ 100 mls/ hr IV Q8H [facility] Rx#: [id number] Intake - Additional IV 60 / 60 Volume (mLs) Output: Urine 500 / 500 575 / 575 Stool 350 / 350 Other: Voiding Method Indwelling Catheter Indwelling Catheter Weight 79.379 kg Patient Weight 02/24/16 23:59 Weight 79.379 kg Exam: General: Patient was very drowsy but arousable. he was mostly mumbling, not making much sense, he fell back to sleep easily HEENT: Mucous membranes pink and moist, anicteric acyanotic, [place], no oral exudates Neck: Supple, no thyroid gland enlargement, no lymphadenopathy Respiratory system: Breath sounds vesicular, no crepitations or wheezes Cardiovascular: Normal S1 and S2, no murmurs appreciated Abdomen: Normal bowel sounds, soft nontender throughout, no organomegaly or mass , liquid green stool from FMS Genitourinary: No suprapubic pain or bladder distention Extremities: moderate bilateral LE edema Skin: No rash Reports - Labs CBC & BMP: 02/24/16 03:51 02/24/16 03:51 Labs: Laboratory Results - last 24 hr 02/23/16 02/23/16 02/24/16 17:49 22:24 03:51 WBC 17.6 H RBC 3.26 L Hgb 9.7 L Hct 30.1 L MCV 92.3 MCH 30 MCHC 32.2 RDW 25.0 H Plt Count 94 L D Neut % (Auto) 83.7 H Lymph % (Auto) 7.7 L Wharton % (Auto) 5.6 Eos % (Auto) 1.9 Baso % (Auto) 0.3 Neut # (Auto) 14.7 H Lymph # (Auto) 1.4 Wharton # (Auto) 1.0 H Eos # (Auto) 0.3 Baso # (Auto) 0.1 Immature Gran % 0.8 Nucleated RBC % 0.0 Immature Gran # 0.14 Nucleated RBCs # 0.00 Platelet Estimate Decreased Hypochromasia 1+ Microcytosis Slight Target Cells 1+ ABG pH ABG pCO2 ABG pO2 ABG HCO3 ABG Total CO2 ABG O2 Saturation ABG Base Excess Sodium 146 H Potassium 4.5 3.9 Chloride 108 H Carbon Dioxide 22 Anion Gap 20.5 H BUN 110 H D Creatinine 4.50 H GFR Calculation 16 BUN/Creatinine Ratio 24.00 H Glucose 117 H Calculated Osmolality 325.6 H Calcium 6.8 L Total Bilirubin AST ALT Alkaline Phosphatase Total Protein Albumin Globulin Albumin/Globulin Ratio 02/24/16 02/24/16 03:51 09:38 WBC RBC Hgb Hct MCV MCH MCHC RDW Plt Count Neut % (Auto) Lymph % (Auto) Wharton % (Auto) Eos % (Auto) Baso % (Auto) Neut # (Auto) Lymph # (Auto) Wharton # (Auto) Eos # (Auto) Baso # (Auto) Immature Gran % Nucleated RBC % Immature Gran # Nucleated RBCs # Platelet Estimate Hypochromasia Microcytosis Target Cells ABG pH 7.381 ABG pCO2 47.7 ABG pO2 93.4 ABG HCO3 26.7 H ABG Total CO2 25.7 ABG O2 Saturation 97.5 ABG Base Excess 2.5 Sodium 147 H Potassium 4.3 Chloride 108 H Carbon Dioxide 25 Anion Gap 18.3 H BUN 100 H D Creatinine 3.40 H GFR Calculation 23 BUN/Creatinine Ratio 29.00 H Glucose 115 H Calculated Osmolality 323.4 H Calcium 7.1 L Total Bilirubin 2.00 H AST 131 H ALT 44 Alkaline Phosphatase 128 H Total Protein 5.2 L Albumin 1.8 L Globulin 3.4 Albumin/Globulin Ratio 0.5 L - Reports Microbiology: Microbiology 02/21/16 14:43 Stool Culture - Final Stool No enteric pathogens at 48 hrs 02/23/16 15:00 Clostridium difficile Toxin Assay - Final Stool Negative for CDiff A &/or B Ag 02/21/16 16:35 Urine Culture - Preliminary Urine,[place] Port Gram Positive Cocci 02/21/16 Unknown MRSA Surveillance Culture - Final Nares - Both Nares (Mrsa screen) No MRSA isolated. Specialty Discharge - Follow Up or Referrals - Discharge Medications No Action Lisinopril [Prinivil] 10 mg PO DAILY tablet chlordiazePOXIDE [Librium] 25 mg PO Q6H #12 capsule Pantoprazole Tab [Protonix Tab] 40 mg PO DAILY #30 tablet
--- NOTE | 2016-02-24 11:39 | Hospitalist Progress Note ---
Assessment and Plan (1) Septic shock Status: Acute Assessment and plan: Able to wean off pressors today, Hep-Lock IV fluids, Dr. Michael consulted, she agrees there is no clear etiology of his infection. C. difficile remains negative. cont meropenem and flagyl Current Visit: Yes (2) Acute on chronic renal failure Status: Acute Assessment and plan: Hep-Lock IV fluids due to volume overload. Current Visit: Yes (3) Delirium tremens Status: Acute Assessment and plan: Has resolved. Continue thiamine and folate. Ammonia level improved with lactulose and rifaximin Current Visit: Yes (4) Severe dehydration Status: Acute Assessment and plan: Had a Hep-Lock fluids today due to volume overload. Current Visit: Yes (5) Fracture of femoral neck, left Status: Acute Assessment and plan: Dr. Senior feels he needs a total hip replacement. Patient is willing to go to rehab. Current Visit: No (6) Acute blood loss anemia Status: Resolved Assessment and plan: Hemoglobin 9.7 today. Status post EGD today showed erosive duodenitis, moderately severe patchy gastritis, 1.2 cm duodenal bulb deep ulcer, class D erosive esophagitis. Continue Protonix. Current Visit: No (7) Hypokalemia Status: Resolved Assessment and plan: Resolved Current Visit: No (8) Mental status change Status: Acute Assessment and plan: MRI without contrast, some improvement with narcan. Suspect patient may have aspirated after EGD Current Visit: Yes Hospitalist: Subjective Interval history: Patient was sleeping soundly this morning. He sounded extremely wet today. We hep-locked his fluids and gave him IV Lasix. Patient less responsive today per nursing who called me later. His ABG and chest x-ray were unremarkable. I am giving him Narcan and holding his narcotics. Exam - Constitutional Vitals: Period Temp Pulse Resp BP Sys/Jacob Pulse Ox Last 24 Hr 97.0 F-98 F 92-135 10-23 77-137/46-85 92-100 Exam: Heart Rate-[RRR] Lungs-[course crackles ] GI-[+bs soft, NT] Ext-[no edema] neuro motor 5/5, intact, sleeping and snoring psych sleeping and snoring general no acute distress Results - Labs CBC & BMP: 02/24/16 03:51 01/03/17 03:51 Lab Results: I have reviewed the past 24 hour labs Labs: Repeat C. difficile negative. Blood cultures 2 negative. ABG normal - Diagnostic Findings Procedure: Chest x-ray: report reviewed by me (Unremarkable) Quality Measures - VTE Contraindication to Pharmacological VTE Prophylaxis: Active Bleeding - Stroke Symptom Onset Unknown: No Specialty Discharge - Follow Up or Referrals - Discharge Medications No Action Lisinopril [Prinivil] 10 mg PO DAILY tablet chlordiazePOXIDE [Librium] 25 mg PO Q6H #12 capsule Pantoprazole Tab [Protonix Tab] 40 mg PO DAILY #30 tablet
--- NOTE | 2016-02-24 11:56 | Physician Query Form ---
CLICK EDIT DOCUMENT TO SELECT QUERY ANSWER --> OK --> SIGN Brandy Roman RN Clinical Communications And Signals Supervisor W) [phone] (f) [phone] [email or web address] PROVIDERS: Make your selection(s) from the choices in EACH section by typing an "x" and enter comments in the comment section. Please use your independent medical judgment in providing your response. This request does not imply that any particular answer is desired or expected. CLINICAL INDICATORS: (Providers should not edit this section) Based on documentation of "hepatic encephalopathy". Please clarify the acuity of the hepatic encephalopathy. Clarify which of the following accurately represents the acuity of the above diagnosis. ( ) Acute (XX) Acute on chronic ( ) Chronic stable condition ( ) Remission ( ) Other, please specify: ( ) Clinically unable to determine COMMENTS: Use of terms such as suspected, likely, or probable (associated with a specific diagnosis that is being evaluated, monitored, or treated as if it exists) are acceptable and can be restated in the discharge summary if not ruled out. [facility]
[2016-02-24] MEDS: NOREPINEPHRINE 8 MG in SODIUM CHLORIDE 0.9% 242 ML IV SCH ×2 (13:09→18:23)
[2016-02-24] MEDS: cefTRIAXone 1,000 MG in SODIUM CHLORIDE 0.9% 100 ML IV SCH (14:18)
[2016-02-24] MEDS: ALBUTEROL/IPRATROPIUM 3 ML NEB RESP TX SCH ×2 (14:25→20:34)
[2016-02-24] MEDS: FLUCONAZOLE INJ 200 MG in PREMIX 1 EACH IV SCH (14:32)
--- NOTE | 2016-02-24 15:14 | Gastrointestinal Progress Note ---
Assessment and Plan (1) Alcoholic cirrhosis of liver without ascites Status: Acute Assessment and plan: This patient has several factors that make me believe that he has cirrhosis. The elevated MCV, thrombocytopenia, his alcohol intake history of a fifth of whiskey per day and his hepatic encephalopathy all point in this direction. We have not yet had a ultrasound of the abdomen but we will get this to look for evidence of ascites and masses within the liver. We'll also check an AFP level as well. He will need to stop drinking entirely. 02/23/16-- no gross evidence of varices, there does appear to be some fairly significant toxic gastritis in the stomach likely produced by the exposure to alcohol versus Helicobacter pylori, biopsies are pending. 02/24/16--will need to check the patient's ammonia level as we advance his diet. It would not surprise me if he is digesting some blood and that this might be kicking up his ammonia somewhat, adding to his confusion. Given his poor by mouth intake and going to put him back on a full liquid diet and add some boost shakes in to see how he tolerates these. I don't know if he is ready for solid diet now, yet. Current Visit: Yes (2) Chronic diarrhea of unknown origin Status: Acute Assessment and plan: This patient has a profound hypokalemia indicating that nausea and vomiting or more likely diarrhea has been predominant for some time. These are being replaced and the patient is being rehydrated he has renal dysfunction and so we need to be careful about replacing his potassium however I need to see these levels above 3 in order to tolerate the anesthesia for his upcoming upper endoscopy. He is being aggressively replaced at this time. 02/23/16--Potassium levels remained suboptimal, continue replacement. 02/24/16 --Diarrhea appears moderately better. Current Visit: Yes (3) Duodenal ulcer with hemorrhage Status: Acute Assessment and plan: The patient does have a 1.2 cm deep duodenal ulcer which may be medication induced versus toxic versus Helicobacter pylori induced. Biopsies of the stomach pending to look for Helicobacter pylori, avoid NSAIDs. 02/24/16--The patient remains on Protonix twice a day, pathology from the biopsies is pending at this time Current Visit: Yes (4) Esophagitis, erosive Status: Acute Assessment and plan: Noted on endoscopy 18 cm of LA class D erosive esophagitis on 02/23/16. 02/24/16-- Erosive esophagitis may be from alcohol, reflux or toxic ingestion. Biopsies pending, if the erosions proved to be secondary to herpes this might explain his encephalopathy/confusion as well. Acid blockade continues. Current Visit: Yes Gastroenterology - PN: Subj Interval history: This patient is talking nonstop at his bedside and is clearly encephalopathic, were very released demonstrating severe flight of ideas and tangential thinking. I asked him if he was eating well and if he wanted a different diet and he responded with "Well, you're the doctor and I need some help...". He is not eating much of his solid tray. We will likely need to rule him back to a full liquid diet with some boost supplements. LFTs and hematocrit are both improving. Exam (Progress Note) - Constitutional Vitals: Period Temp Pulse Resp BP Sys/Jacob Pulse Ox Last 24 Hr 97.0 F-98 F 92-135 10-23 67-132/41-84 92-100 General appearance: under weight - Eye Eye exam: Present: EOMI Pupils: Present: LEIGHTON - Respiratory Respiratory exam: Present: clear to auscultation bilaterally - Cardiovascular Cardiovascular exam: Present: regular rate and rhythm - GI/Abdominal GI/Abdominal exam: Present: normal bowel sounds - Neurological Exam Neurological exam: Present: alert, altered (appears to be easily confused with garbled speech) - Psychiatric Psychiatric exam: Present: normal affect, normal mood. Absent: flat affect - Skin Skin exam: Present: warm Results - Labs CBC & BMP: 02/24/16 03:51 02/24/16 03:51 Specialty Discharge - Follow Up or Referrals - Discharge Medications No Action Lisinopril [Prinivil] 10 mg PO DAILY tablet chlordiazePOXIDE [Librium] 25 mg PO Q6H #12 capsule Pantoprazole Tab [Protonix Tab] 40 mg PO DAILY #30 tablet
[2016-02-24] MEDS ORDERED: DEXTROSE 50% 25 GM/50 ML VIAL IV PRN (15:25)
[2016-02-24] MEDS ORDERED: GLUCAGON 1 MG VIAL IM PRN (15:25)
--- NOTE | 2016-02-24 17:18 | Magnetic Resonance Report ---
Referring physician: Kayleen Rouse Exam: MRI brain without contrast Date: February 24, 2016 Comparison: CT brain without contrast February 21, 2016 Reason: Mental status changes, delirium tremens The patient is an inpatient who was admitted on February 21, 2016. Technique: MRI of the brain was performed without the use of contrast. Obtained images include sagittal T1, axial diffusion-weighted, axial FLAIR, axial T2, coronal T2, axial gradient and axial T1 sequences. A 1.5 Pily magnet was used. Findings: Motion artifact is present and degrades the quality of some sequences. There is mild generalized cerebral atrophy/volume loss. Minimal scattered areas of T2/FLAIR hyperintensity are seen within the cerebral white matter bilaterally. This is nonspecific but is most consistent with minimal chronic microvascular ischemic change. Less likely considerations include a demyelinating process, vasculitis or viral process. No hydrocephalus or midline shift is present. There is no evidence of recent intracranial hemorrhage, abnormal mass effect or an abnormal extra-axial fluid collection. Motion artifact makes evaluation somewhat difficult, but no definite acute infarction is identified. Major vascular flow voids are visualized. The orbits, sella and brainstem are unremarkable. There is fluid within the right mastoid air cells, which could reflect mastoiditis. The left mastoid air cells and paranasal sinuses appear clear. Impression: 1. Motion artifact is present and degrades the quality of some sequences. However, no acute intracranial process is identified. 2. Probable minimal chronic microvascular ischemic change. 3. There is fluid within the right mastoid air cells. This could represent mastoiditis. PROCEDURE INTERPRETED AT [facility] DEPARTMENT OF RADIOLOGY Final Report Signed by: Dr. Braden Matias
[2016-02-24] MEDS: CLORAZEPATE 7.5 MG TABLET PO PRN (21:38)
--- NOTE | 2016-02-24 22:40 | Nephrology Progress Note ---
Nephrology - PN: Subj Interval history: This patient is resting comfortably no acute changes. Serum creatinine is trending down to 3.4. Exam (PN)-Nephrology - Vital Signs Vital signs: Period Temp Pulse Resp BP Sys/Jacob Pulse Ox Last 24 Hr 97.1 F-97.5 F 92-135 10-22 67-135/41-101 87-100 - General Appearance General appearance: well-developed, well-nourished EENT: ATNC Cardiology: no edema, regular rate, regular rhythm Gastrointestinal: normoactive bowel sounds, no tenderness - Lab 02/24/16 03:51 02/24/16 03:51 Most recent lab results ABG pH 7.381 (7.35-7.45) 02/24/16 09:38 ABG pCO2 47.7 MM HG (35-48) 02/24/16 09:38 ABG pO2 93.4 MM HG (80-95) 02/24/16 09:38 ABG HCO3 26.7 MMOL/L (20-26) H 02/24/16 09:38 ABG O2 Saturation 97.5 % (95-100) 02/24/16 09:38 Calcium 7.1 MG/DL (8.5-10.1) L 02/24/16 03:51 Magnesium 2.1 MG/DL (1.8-2.4) 02/23/16 02:24 Assessment and Plan (1) Acute renal failure Status: Acute Assessment and plan: Renal function appears to be recovering. Continue current management. Current Visit: No Specialty Discharge - Follow Up or Referrals - Discharge Medications No Action Lisinopril [Prinivil] 10 mg PO DAILY tablet chlordiazePOXIDE [Librium] 25 mg PO Q6H #12 capsule Pantoprazole Tab [Protonix Tab] 40 mg PO DAILY #30 tablet
[2016-02-25] MEDS: ALBUTEROL/IPRATROPIUM 3 ML NEB RESP TX SCH ×7 (00:10→23:53)
[2016-02-25 04:51] LABS: Albumin 1.9 G/DL (3.4-5.0); Calcium 8.1 MG/DL (8.5-10.1); Potassium 3.9 MMOL/L (3.5-5.1); Total Protein 5.4 G/DL (6.4-8.3)
[2016-02-25] MEDS: POTASSIUM CHLORIDE RIDER 10 MEQ in PREMIX 1 EACH IV PRN (06:20)
[2016-02-25] MEDS: RIFAXIMIN 550 MG TABLET PO SCH ×2 (08:02→21:00)
[2016-02-25] MEDS: LACTULOSE 20 GM/30 ML UDCUP PO SCH ×4 (08:02→22:24)
[2016-02-25] MEDS: metroNIDAZOLE INJ 500 MG in PREMIX 1 EACH IV SCH ×3 (08:02→23:50)
[2016-02-25] MEDS: PANTOPRAZOLE 40 MG VIAL IV SCH ×2 (08:03→21:00)
[2016-02-25] MEDS: NYSTATIN POWDER 15 GM BOTTLE TOP SCH ×3 (08:03→23:14)
[2016-02-25] MEDS: THIAMINE 200 MG/2 ML VIAL IV SCH (08:03)
[2016-02-25] MEDS: DESITIN 4OZ/NYSTATIN 15 GRAM MIXTURE PASTE TOP SCH ×2 (08:04→23:14)
[2016-02-25] MEDS: CLORAZEPATE 7.5 MG TABLET PO PRN (08:10)
[2016-02-25] MEDS: NOREPINEPHRINE 8 MG in SODIUM CHLORIDE 0.9% 242 ML IV SCH (08:15)
--- NOTE | 2016-02-25 09:08 | Hospitalist Progress Note ---
Assessment and Plan (1) Septic shock Status: Acute Assessment and plan: stopped levaphed, cont meropenem and flagyl Current Visit: Yes (2) Acute on chronic renal failure Status: Acute Assessment and plan: start him back on d5w Current Visit: Yes (3) Delirium tremens Status: Acute Assessment and plan: cont lactulose and rifaxmin, check ammonia level today Current Visit: Yes (4) Severe dehydration Status: Acute Assessment and plan: start back low dose d5w Current Visit: Yes (5) Fracture of femoral neck, left Status: Acute Assessment and plan: Dr. Senior feels he needs a total hip replacement. Patient is willing to go to rehab. Current Visit: No (6) Acute blood loss anemia Status: Resolved Assessment and plan: Status post EGD today showed erosive duodenitis, moderately severe patchy gastritis, 1.2 cm duodenal bulb deep ulcer, class D erosive esophagitis. Continue Protonix. Current Visit: No (7) Mental status change Status: Acute Assessment and plan: MRI negative, improved with narcan, ammonia level Current Visit: Yes Hospitalist: Subjective Interval history: Patient looks better today is more alert. MRI was negative. I think it is he is on narcotics and benzos that are contributing to his mental status problems. Exam - Constitutional Vitals: Period Temp Pulse Resp BP Sys/Jacob Pulse Ox Last 24 Hr 97.1 F-98.1 F 97-135 10-22 67-135/41-101 87-99 Exam: Heart Rate-[RRR] Lungs-[clear ] GI-[+bs soft, NT] Ext-[no edema] neuro motor 5/5, intact, more alert and awake psych normal mood and affect general no acute distress Results - Labs CBC & BMP: 02/24/16 03:51 02/25/16 03:50 Lab Results: I have reviewed the past 24 hour labs - Diagnostic Findings Procedure: MRI: report reviewed by me (unremarkable) Quality Measures - VTE Contraindication to Pharmacological VTE Prophylaxis: Active Bleeding - Stroke Symptom Onset Unknown: No Specialty Discharge - Follow Up or Referrals - Discharge Medications No Action Lisinopril [Prinivil] 10 mg PO DAILY tablet chlordiazePOXIDE [Librium] 25 mg PO Q6H #12 capsule Pantoprazole Tab [Protonix Tab] 40 mg PO DAILY #30 tablet
--- NOTE | 2016-02-25 09:13 | Gastrointestinal Progress Note ---
Assessment and Plan (1) Alcoholic cirrhosis of liver without ascites Status: Acute Assessment and plan: This patient has several factors that make me believe that he has cirrhosis. The elevated MCV, thrombocytopenia, his alcohol intake history of a fifth of whiskey per day and his hepatic encephalopathy all point in this direction. We have not yet had a ultrasound of the abdomen but we will get this to look for evidence of ascites and masses within the liver. We'll also check an AFP level as well. He will need to stop drinking entirely. 02/23/16-- no gross evidence of varices, there does appear to be some fairly significant toxic gastritis in the stomach likely produced by the exposure to alcohol versus Helicobacter pylori, biopsies are pending. 02/24/16--will need to check the patient's ammonia level as we advance his diet. It would not surprise me if he is digesting some blood and that this might be kicking up his ammonia somewhat, adding to his confusion. Given his poor by mouth intake and going to put him back on a full liquid diet and add some boost shakes in to see how he tolerates these. I don't know if he is ready for solid diet now, yet. 02/25/16--I don't see a recent ammonia level but we are rechecking this now. He appears to be doing better despite his long segment of erosive esophagitis which may be also boosting his ammonia level due to digested blood. He can probably be advanced to a solid diet now as he is doing very well with the full liquid. Current Visit: Yes (2) Chronic diarrhea of unknown origin Status: Acute Assessment and plan: This patient has a profound hypokalemia indicating that nausea and vomiting or more likely diarrhea has been predominant for some time. These are being replaced and the patient is being rehydrated he has renal dysfunction and so we need to be careful about replacing his potassium however I need to see these levels above 3 in order to tolerate the anesthesia for his upcoming upper endoscopy. He is being aggressively replaced at this time. 02/23/16--Potassium levels remained suboptimal, continue replacement. 02/24/16 --Diarrhea appears moderately better. 02/25/16-- lactulose induced diarrhea, appropriate, continue medication. Current Visit: Yes (3) Duodenal ulcer with hemorrhage Status: Acute Assessment and plan: The patient does have a 1.2 cm deep duodenal ulcer which may be medication induced versus toxic versus Helicobacter pylori induced. Biopsies of the stomach pending to look for Helicobacter pylori, avoid NSAIDs. 02/24/16--The patient remains on Protonix twice a day, pathology from the biopsies is pending at this time 02/25/16-- patient's pathology is pending to see if his Helicobacter pylori, this is likely NSAID-induced possibly with alcohol component. Current Visit: Yes (4) Esophagitis, erosive Status: Acute Assessment and plan: Noted on endoscopy 18 cm of LA class D erosive esophagitis on 02/23/16. 02/24/16-- Erosive esophagitis may be from alcohol, reflux or toxic ingestion. Biopsies pending, if the erosions proved to be secondary to herpes this might explain his encephalopathy/confusion as well. Acid blockade continues. 02/25/16--as noted above. Current Visit: Yes Gastroenterology - PN: Subj Interval history: More awake today, tolerating solids better, this can be switched over to a more regular diet-- likely needs to be a low-sodium. He is able to converse much more easily today and does not seem as confused. I'll be surprised if his ammonia level is not significantly improved. Exam (Progress Note) - Constitutional Vitals: Period Temp Pulse Resp BP Sys/Jacob Pulse Ox Last 24 Hr 97.1 F-98.1 F 97-135 10-22 67-135/41-101 87-99 General appearance: no acute distress - Eye Eye exam: Present: EOMI Pupils: Present: LEIGHTON - Respiratory Respiratory exam: Present: clear to auscultation bilaterally. Absent: rhonchi, stridor, wheezes - Cardiovascular Cardiovascular exam: Present: regular rate and rhythm - GI/Abdominal GI/Abdominal exam: Present: normal bowel sounds - Neurological Exam Neurological exam: Present: alert, oriented X3, CN II-XII intact. Absent: motor sensory deficit - Psychiatric Psychiatric exam: Present: normal affect, normal mood - Skin Skin exam: Present: warm Results - Labs CBC & BMP: 02/24/16 03:51 02/25/16 03:50 Specialty Discharge - Follow Up or Referrals - Discharge Medications No Action Lisinopril [Prinivil] 10 mg PO DAILY tablet chlordiazePOXIDE [Librium] 25 mg PO Q6H #12 capsule Pantoprazole Tab [Protonix Tab] 40 mg PO DAILY #30 tablet
[2016-02-25] MEDS: DEXTROSE 5% 1,000 ML IV SCH ×2 (09:21→22:45)
[2016-02-25] MEDS: FOLIC ACID INJ 1 MG in SYRINGE 1 EACH IV SCH (09:25)
--- NOTE | 2016-02-25 11:20 | Pathology Report from [facility] ---
ACCESSION # : [id number] PATIENT NAME : Chucky Schmid ORDERING DR : Claude Rinaldi MD CLINICAL HX: GI bleed -/+ stools POST-OP DX: #1 Sprue #2 ROME SPECIMEN INFO: #1 Small Bowel #2 ROME GROSS DESCRIPTION: The specimen is received in formalin in two parts labeled "CHUCKY SCHMID". Part #1 consists of a 0.5 x 0.5 cm aggregate paredes mucosal tissue, submitted in cassette #1.Part #2 consists of a 0.9 x 0.3 cm aggregate of paredes mucosal tissue, submitted in casssette #2. DIAGNOSIS FOR CHUCKY SCHMID: #1 DUODENAL BIOPSIES: Unremarkable duodenal mucosa with normal villous architecture and no organisms or intraepithelial lymphocytosis.#2 GASTRIC BIOPSIES: Chronic antral gastritis. H.pylori not seen on special stain. SERVICE DATE: 02/24/2016 REPORT DATE: 02/25/2016 PATHOLOGIST: Rolando Bellamy M.D. [facility]ITAL[facility]
--- NOTE | 2016-02-25 11:46 | Infectious Disease Progress ---
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 COntinue to monitor and adjust antibiotic doses accordingly. Current Visit: No (6) Leukocytosis Status: Acute Assessment and plan: Cause unclear, it is improving since admission. We have not identified an infection; I think the few colonies of E. faecalis in the urine represent colonization/contamination. Recommendations: Can continue Flagyl and ceftriaxone for now, but once no positive blood cultures, stop them. D/W Dr Rouse Current Visit: Yes Infectious Disease - PN: Subj Interval history: Patient much more alert and oriented today. No fever. Tolerating oral intake. Off pressors. Infectious Disease Exam (PN) - Constitutional Vitals: Temp Pulse Resp BP Pulse Ox 98.1 F 125 H 17 84/60 94 L 02/25/16 08:00 02/25/16 10:00 02/25/16 10:00 02/25/16 10:00 02/25/16 10:00 General appearance: no acute distress Exam: General appearance: alert and responds appropriately, oriented to person and place but not time. - Eye Eye exam: Present: EOMI. no icterus Pupils: Present: LEIGHTON - ENT ENT exam: no oral exudates - Respiratory Respiratory exam: vesicular BS, no crepitations or wheezes - Cardiovascular Cardiovascular exam: regular rate and rhythm, no murmurs - GI/Abdominal GI/Abdominal exam: normal bowel sounds, soft, non-tender, no organomegaly or mass - Extremities Exam Extremities exam: mild bilateral LE edema - Skin Skin exam: no rash Results - Labs CBC & BMP: 02/24/16 03:51 02/25/16 03:50 Lab Results: I have reviewed the past 24 hour labs (blood cultures NGTD; urine had 20-30K E. faecalis) Quality Measures - VTE Contraindication to Pharmacological VTE Prophylaxis: Active Bleeding - Stroke Symptom Onset Unknown: No Specialty Discharge - Follow Up or Referrals - Discharge Medications No Action Lisinopril [Prinivil] 10 mg PO DAILY tablet chlordiazePOXIDE [Librium] 25 mg PO Q6H #12 capsule Pantoprazole Tab [Protonix Tab] 40 mg PO DAILY #30 tablet
[2016-02-25] MEDS: LORazepam 0.5 MG TABLET PO PRN (12:46)
[2016-02-25] MEDS: cefTRIAXone 1,000 MG in SODIUM CHLORIDE 0.9% 100 ML IV SCH (12:46)
--- NOTE | 2016-02-25 14:31 | Nephrology Progress Note ---
Nephrology - PN: Subj Interval history: The patient is resting. Serum creatinine continues to show signs of improvement with creatinine at 2.1. Exam (PN)-Nephrology - Vital Signs Vital signs: Period Temp Pulse Resp BP Sys/Jacob Pulse Ox Last 24 Hr 97.1 F-98.1 F 97-130 10-21 81-147/45-101 87-99 - General Appearance General appearance: well-developed, well-nourished EENT: ATNC Neck: supple Respiratory: clear Cardiology: regular rate, regular rhythm Gastrointestinal: normoactive bowel sounds, no tenderness, no guarding Neurologic: CN 3-12 intact Musculoskeletal: no erythema, no clubbing Psychiatric: depressed - Lab 02/24/16 03:51 02/25/16 03:50 Most recent lab results ABG pH 7.381 (7.35-7.45) 02/24/16 09:38 ABG pCO2 47.7 MM HG (35-48) 02/24/16 09:38 ABG pO2 93.4 MM HG (80-95) 02/24/16 09:38 ABG HCO3 26.7 MMOL/L (20-26) H 02/24/16 09:38 ABG O2 Saturation 97.5 % (95-100) 02/24/16 09:38 Calcium 8.1 MG/DL (8.5-10.1) L 02/25/16 03:50 Magnesium 2.1 MG/DL (1.8-2.4) 02/23/16 02:24 Assessment and Plan (1) Acute renal failure Status: Acute Assessment and plan: Renal function appears to be recovering. Continue current management. Current Visit: No Specialty Discharge - Follow Up or Referrals - Discharge Medications No Action Lisinopril [Prinivil] 10 mg PO DAILY tablet chlordiazePOXIDE [Librium] 25 mg PO Q6H #12 capsule Pantoprazole Tab [Protonix Tab] 40 mg PO DAILY #30 tablet
--- NOTE | 2016-02-25 14:35 | ECHO Report ---
Chucky Pepper Exam Date: 02/25/2016 09:24 Referring Physician: Technologist: Bridger HOUSTON Age: 50 Ht (in): Wt (lb): Gender: M Exam Location: [facility] Echo Indications: severe dehydration, septic shock, SOB, leukocytosis, esophagitis, acute renal failure, hypokalemia BP: / HR: Rhythm: Sinus tachycardia Technical Quality: Fair IMPRESSIONS 1. The patient is in probable sinus tachycardia. 2. Left ventricle is normal size systolic function of greater than 60% and hyperdynamic. No segmental wall motion amount is noted. 3. At worst left atrium may be mildly dilated. 4. There is mild trace tricuspid regurgitation. 5. Right-sided pressures are grossly normal. 6. There are worst is trace to mild aortic regurgitation. MEASUREMENTS (Male / Female) Normal Values 2D ECHO LV Diastolic Diameter PLAX 4.0 cm 4.2 - 5.9 / 3.9 - 5.3 cm LV Systolic Diameter PLAX 2.7 cm LV Fractional Shortening PLAX 33.3 % IVS Diastolic Thickness 1.1 cm 0.6 - 1.0 / 0.6 - 0.9 cm LVPW Diastolic Thickness 0.9 cm 0.6 - 1.0 / 0.6 - 0.9 cm RV Internal Dim ED PLAX 3.0 cm Aortic Root Diameter 2.8 cm LA Systolic Diameter LX 4.4 cm 3.0 - 4.0 / 2.7 - 3.8 cm DOPPLER TR Peak Velocity 195.0 cm/s TR Peak Gradient 15.2 mmHg FINDINGS Left Ventricle Left ventricle is normal size with normal systolic function with ejection fraction of 60+ percent. Wall thickness is normal. There are no segmental wall motion amount used. Diastolic dysfunction is not measurable with this patient being tachycardic. Right Ventricle Normal right ventricular size and systolic function. Right Atrium Normal right atrial size. Left Atrium Mildly increased left atrial diameter. Mitral Valve Morphologically normal mitral valve. Trace mitral valve regurgitation. Aortic Valve Aortic valve is tricuspid structure with good excursion and mildly sclerotic without stenosis. Trace to Mild aortic valve regurgitation. Tricuspid Valve Mitral valve appears to be anatomically normal with good motion. There is trace to mild tricuspid regurgitation velocities suggest a PAP of 15.2 mmHg with a peak right-sided pressure of 20-25 mmHg Pulmonic Valve Morphologically normal pulmonic valve. Trace pulmonary valve regurgitation. Pericardium No pericardial effusion. Aorta Normal size aortic root and proximal ascending aorta. Shankar Painter MD (Electronically Signed) Final Date: 25 February 2016 14:34
[2016-02-25] MEDS: NICOTINE 21 MG/24 HR PATCH TRANSDERM SCH (14:42)
[2016-02-25] MEDS: oxyCODONE/ACETAMINOPHEN 5-325 MG TABLET PO PRN ×2 (16:18→22:00)
[2016-02-25] MEDS: FLUCONAZOLE INJ 200 MG in PREMIX 1 EACH IV SCH (16:18)
[2016-02-26] MEDS: ALBUTEROL/IPRATROPIUM 3 ML NEB RESP TX SCH ×6 (03:50→23:40)
[2016-02-26 04:56] LABS: Basophils % 0.2 % (0.0-0.8); Eosinophils # 0.2 10*3/uL (0.0-0.87); Eosinophils % 1.8 % (0.00-10.9); Hematocrit 31.6 VOL% (42.0-52.0); Hemoglobin 10.3 GM/DL (14.0-18.0); Immature Granulocytes % 0.6 %; Immature Granulocytes Absolute 0.08 #; Lymphocytes # 1.8 10*3/uL (1.4-4.0); Mean Corpuscular HGB Conc 32.6 GM/DL (32-36); Mean Corpuscular Hemoglobin 30 PG (27-34); Mean Corpuscular Volume 92.9 FL (87-102); Mean Platelet Volume 14.1 FL (9.6-12.0); Monocytes % 7.6 % (1.7-12.7); Neutrophils # 10.4 10*3/uL (1.4-7.4); Neutrophils % 76.8 % (38.7-73.9); Platelet Count 113 10*3/uL (130-400); White Blood Count 13.5 10*3/uL (4.5-13.71)
[2016-02-26 05:23] LABS: Burr Cells Slight; Elliptocytes Few; Hypochromasia 1+; Microcytosis Slight; Platelet Estimate Decreased
[2016-02-26 05:30] LABS: Albumin 1.9 G/DL (3.4-5.0); Bilirubin,Total 3.3 MG/DL (0.2-1.0); Calcium 7.8 MG/DL (8.5-10.1); Osmolality,Calculated 302.8 MOS/KG (273-304); Potassium 3.6 MMOL/L (3.5-5.1); Total Protein 5.6 G/DL (6.4-8.3)
[2016-02-26] MEDS: oxyCODONE/ACETAMINOPHEN 5-325 MG TABLET PO PRN ×2 (06:00→09:47)
[2016-02-26] MEDS: metroNIDAZOLE INJ 500 MG in PREMIX 1 EACH IV SCH (07:49)
--- NOTE | 2016-02-26 09:04 | Infectious Disease Progress ---
Assessment and Plan (1) Alcoholic cirrhosis of liver without ascites Status: Acute Current Visit: Yes (2) Chronic diarrhea of unknown origin Status: Acute Assessment and plan: This is a chronic problem; I am going to stop the Flagyl. 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 No infection identified. Current Visit: Yes (5) Acute renal failure Status: Acute Assessment and plan: Almost resolved. Current Visit: No (6) Leukocytosis Status: Acute Assessment and plan: Cause unclear, it has almost resolved. May have been stress response. CUltures unremarkable (I think the few colonies of E. faecalis in the urine represent colonization/contamination). Recommendations: Discontinue antibiotics. I will sign off. Call again prn. Current Visit: Yes Infectious Disease - PN: Subj Interval history: Patient has no complaints, remains off pressors, no fever, eating well. Says he wants to go home. Infectious Disease Exam (PN) - Constitutional Vitals: Temp Pulse Resp BP Pulse Ox 97 F L 122 H 16 87/69 100 02/26/16 07:00 02/26/16 07:00 02/26/16 07:00 02/26/16 07:00 02/26/16 07:00 General appearance: no acute distress Exam: General appearance: alert and responds appropriately - Eye Eye exam: Present: EOMI. no icterus Pupils: Present: LEIGHTON - ENT ENT exam: no oral exudates - Respiratory Respiratory exam: vesicular BS, no crepitations or wheezes - Cardiovascular Cardiovascular exam: regular rate and rhythm, no murmurs - GI/Abdominal GI/Abdominal exam: normal bowel sounds, soft, non-tender, no organomegaly or mass - Extremities Exam Extremities exam: mild bilateral LE edema - Skin Skin exam: no rash Results - Labs CBC & BMP: 02/26/16 04:48 02/26/16 04:48 Lab Results: I have reviewed the past 24 hour labs (blood cultures remain negative) Quality Measures - VTE Contraindication to Pharmacological VTE Prophylaxis: Active Bleeding - Stroke Symptom Onset Unknown: No Specialty Discharge - Follow Up or Referrals - Discharge Medications No Action Lisinopril [Prinivil] 10 mg PO DAILY tablet chlordiazePOXIDE [Librium] 25 mg PO Q6H #12 capsule Pantoprazole Tab [Protonix Tab] 40 mg PO DAILY #30 tablet
[2016-02-26] MEDS: PANTOPRAZOLE 40 MG VIAL IV SCH ×2 (09:46→22:28)
[2016-02-26] MEDS: NICOTINE 21 MG/24 HR PATCH TRANSDERM SCH ×2 (09:46→09:54)
[2016-02-26] MEDS: DESITIN 4OZ/NYSTATIN 15 GRAM MIXTURE PASTE TOP SCH ×2 (09:46→22:26)
[2016-02-26] MEDS: NYSTATIN POWDER 15 GM BOTTLE TOP SCH ×2 (09:46→18:04)
[2016-02-26] MEDS: THIAMINE 200 MG/2 ML VIAL IV SCH (09:47)
[2016-02-26] MEDS: RIFAXIMIN 550 MG TABLET PO SCH ×2 (09:47→22:24)
[2016-02-26] MEDS: LACTULOSE 20 GM/30 ML UDCUP PO SCH ×2 (09:48→09:54)
[2016-02-26] MEDS: LORazepam 0.5 MG TABLET PO PRN (09:48)
--- NOTE | 2016-02-26 09:58 | Orthopedic Progress Note ---
Orthopedics - Subjective Interval history: Dr. Senior has informed me of his admission. I treated Mr. Pepper with open reduction fixation of a left vertical femoral neck fracture. Mr. Pepper was noncompliant throughout treatment including early unrestricted weightbearing and tobacco use. He stopped following up. He states that he is able to ambulate approximately half a block with walker. He is complaining of left knee pain. The patient also demonstrates poor insight into his medical condition. His hospital course was reviewed from the chart. Exam shows a shortened and externally rotated left lower extremity with moderately painful range of motion of his left hip. Radiographs of his hip demonstrate intact compression plate and screw. However the patient has resorption of most of his femoral head. This is consistent with avascular necrosis and nonunion. 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 Plan: The patient clearly needs to be optimized from a medical and nutrition standpoint prior to any surgical treatment. When optimized, the patient would benefit from either a total hip arthroplasty or hemiarthroplasty. The patient can be mobilized without restriction. He can be weightbearing as tolerated on his left lower extremity. Reconsult with problems. Exam - Constitutional Vitals: Period Temp Pulse Resp BP Sys/Jacob Pulse Ox Last 24 Hr 96.4 F-97.6 F 103-126 12-26 79-133/46-107 91-100 Results - Labs CBC & BMP: 02/26/16 04:48 02/26/16 04:48 Quality Measures - VTE Contraindication to Pharmacological VTE Prophylaxis: Active Bleeding - Stroke Symptom Onset Unknown: No Specialty Discharge - Follow Up or Referrals - Discharge Medications No Action Lisinopril [Prinivil] 10 mg PO DAILY tablet chlordiazePOXIDE [Librium] 25 mg PO Q6H #12 capsule Pantoprazole Tab [Protonix Tab] 40 mg PO DAILY #30 tablet
[2016-02-26] MEDS: PROPRANOLOL 20 MG TABLET PO SCH ×2 (10:24→22:14)
[2016-02-26] MEDS: DEXTROSE 5% 1,000 ML IV SCH (11:51)
--- NOTE | 2016-02-26 12:49 | Hospitalist Progress Note ---
Assessment and Plan (1) Septic shock Status: Acute Assessment and plan: resolved, unclear etiology, enterococcus in urine could be contaminant. Dr Michael has stopped his abx Current Visit: Yes (2) Acute on chronic renal failure Status: Acute Assessment and plan: improving with hydration Current Visit: Yes (3) Delirium tremens Status: Acute Assessment and plan: decrease lactulose and cont rifaxmin,ammonia level normal Current Visit: Yes (4) Severe dehydration Status: Acute Assessment and plan: resolving Current Visit: Yes (5) Fracture of femoral neck, left Status: Acute Assessment and plan: Dr. Vargas does not plan to fix his hip at this point Current Visit: No (6) Acute blood loss anemia Status: Resolved Assessment and plan: Status post EGD today showed erosive duodenitis, moderately severe patchy gastritis, 1.2 cm duodenal bulb deep ulcer, class D erosive esophagitis. Continue Protonix. Current Visit: No Hospitalist: Subjective Interval history: Patient is doing well I will transfer him out of the unit today. I am controlling his heart rate with Inderal. Patient is saying he wants to go home for a while before he has his hip surgery. Plus orthopedics wants to make sure he is committed to rehab prior to getting his surgery. The difficulty will be that the patient does not have insurance. I have talked to the director of social work and will hopefully have him apply for disability. Exam - Constitutional Vitals: Period Temp Pulse Resp BP Sys/Jacob Pulse Ox Last 24 Hr 97 F-97.6 F 89-127 12-26 85-136/50-107 95-100 Exam: Heart Rate-[tachy] Lungs-[clear ] GI-[+bs soft, NT] Ext-[no edema] neuro motor 5/5, intact, alert and oriented times 2 psych normal mood and affect general no acute distress Results - Labs CBC & BMP: 02/26/16 04:48 02/26/16 04:48 Lab Results: I have reviewed the past 24 hour labs - Diagnostic Findings Procedure: Ultrasound: report reviewed by me (echo ef 60% normal) Quality Measures - VTE Contraindication to Pharmacological VTE Prophylaxis: Active Bleeding - Stroke Symptom Onset Unknown: No Specialty Discharge - Follow Up or Referrals - Discharge Medications No Action Lisinopril [Prinivil] 10 mg PO DAILY tablet chlordiazePOXIDE [Librium] 25 mg PO Q6H #12 capsule Pantoprazole Tab [Protonix Tab] 40 mg PO DAILY #30 tablet
--- NOTE | 2016-02-26 17:20 | Gastrointestinal Progress Note ---
Assessment and Plan (1) Alcoholic cirrhosis of liver without ascites Status: Acute Assessment and plan: This patient has several factors that make me believe that he has cirrhosis. The elevated MCV, thrombocytopenia, his alcohol intake history of a fifth of whiskey per day and his hepatic encephalopathy all point in this direction. We have not yet had a ultrasound of the abdomen but we will get this to look for evidence of ascites and masses within the liver. We'll also check an AFP level as well. He will need to stop drinking entirely. 02/23/16-- no gross evidence of varices, there does appear to be some fairly significant toxic gastritis in the stomach likely produced by the exposure to alcohol versus Helicobacter pylori, biopsies are pending. 02/24/16--will need to check the patient's ammonia level as we advance his diet. It would not surprise me if he is digesting some blood and that this might be kicking up his ammonia somewhat, adding to his confusion. Given his poor by mouth intake and going to put him back on a full liquid diet and add some boost shakes in to see how he tolerates these. I don't know if he is ready for solid diet now, yet. 02/25/16--I don't see a recent ammonia level but we are rechecking this now. He appears to be doing better despite his long segment of erosive esophagitis which may be also boosting his ammonia level due to digested blood. He can probably be advanced to a solid diet now as he is doing very well with the full liquid. 02/26/16--the patient is now doing well on a solid diet, despite his fairly extensive esophagitis, his hematocrit is stable and he is ready to be discharged in my opinion. He does believe that he can maintain his sobriety. I have told him that I think this will be difficult but he needs to do this. Current Visit: Yes (2) Chronic diarrhea of unknown origin Status: Acute Assessment and plan: This patient has a profound hypokalemia indicating that nausea and vomiting or more likely diarrhea has been predominant for some time. These are being replaced and the patient is being rehydrated he has renal dysfunction and so we need to be careful about replacing his potassium however I need to see these levels above 3 in order to tolerate the anesthesia for his upcoming upper endoscopy. He is being aggressively replaced at this time. 02/23/16--Potassium levels remained suboptimal, continue replacement. 02/24/16 --Diarrhea appears moderately better. 02/25/16-- lactulose induced diarrhea, appropriate, continue medication. 02/26/16--the patient's Flagyl has been discontinued. Current Visit: Yes (3) Duodenal ulcer with hemorrhage Status: Acute Assessment and plan: The patient does have a 1.2 cm deep duodenal ulcer which may be medication induced versus toxic versus Helicobacter pylori induced. Biopsies of the stomach pending to look for Helicobacter pylori, avoid NSAIDs. 02/24/16--The patient remains on Protonix twice a day, pathology from the biopsies is pending at this time 02/25/16-- patient's pathology is pending to see if his Helicobacter pylori, this is likely NSAID-induced possibly with alcohol component. 02/26/16--there is no Helicobacter pylori in the pathology. No evidence of celiac sprue either. No need to treat with antibiotics for the duodenal ulcer. Because this ulcers in the duodenum he does not require repeat endoscopy. Current Visit: Yes (4) Esophagitis, erosive Status: Acute Assessment and plan: Noted on endoscopy 18 cm of LA class D erosive esophagitis on 02/23/16. 02/24/16-- Erosive esophagitis may be from alcohol, reflux or toxic ingestion. Biopsies pending, if the erosions proved to be secondary to herpes this might explain his encephalopathy/confusion as well. Acid blockade continues. 02/25/16--as noted above. 02/26/16 no gross evidence of herpes or other lesions in the esophageal biopsies. I have written a prescription for pantoprazole 40 mg to be taken before breakfast and supper. At this point the patient is stable from a GI standpoint ready for discharge. He can follow up with me as needed in the clinic. See the front of the chart for the prescription. Thank you for this interesting consult will sign off the case at this time. Current Visit: Yes Gastroenterology - PN: Subj Interval history: Patient is more awake today and can certainly talk with greater lucidity, he is eating well and his ammonia levels are doing very well. I agree on Dr. Rouse's decision to cut back on his lactulose intake, currently at 30 mL daily. From a GI standpoint he is ready to be discharged as his hematocrit remained stable. Note that the patient has no varices and so it is not mandatory to use beta blockers in him. Exam (Progress Note) - Constitutional Vitals: Period Temp Pulse Resp BP Sys/Jacob Pulse Ox Last 24 Hr 97 F-97.6 F 89-127 12-21 85-136/50-107 95-100 General appearance: no acute distress - Head Head exam: Present: normocephalic, atraumatic - Eye Eye exam: Present: EOMI Pupils: Present: LEIGHTON - Respiratory Respiratory exam: Present: clear to auscultation bilaterally - GI/Abdominal GI/Abdominal exam: Present: normal bowel sounds, soft. Absent: ascites, distended, guarding, tenderness - Psychiatric Psychiatric exam: Present: normal affect, normal mood - Skin Skin exam: Present: warm Results - Labs CBC & BMP: 02/26/16 04:48 02/26/16 04:48 Specialty Discharge - Follow Up or Referrals - Discharge Medications No Action Lisinopril [Prinivil] 10 mg PO DAILY tablet chlordiazePOXIDE [Librium] 25 mg PO Q6H #12 capsule Pantoprazole Tab [Protonix Tab] 40 mg PO DAILY #30 tablet
--- NOTE | 2016-02-26 17:27 | Nephrology Progress Note ---
Nephrology - PN: Subj Interval history: The patient is resting no acute changes. Continues to show signs of renal improvement with creatinine now down to 1.7. Hemodynamically stable metabolics are acceptable. No new recommendations at this time we will sign off please call if needed Exam (PN)-Nephrology - Vital Signs Vital signs: Period Temp Pulse Resp BP Sys/Jacob Pulse Ox Last 24 Hr 97 F-97.6 F 89-127 12-21 85-136/50-107 95-100 - General Appearance General appearance: well-developed, well-nourished EENT: ATNC Neck: supple Respiratory: clear Cardiology: no edema, regular rate, regular rhythm Gastrointestinal: normoactive bowel sounds, no tenderness - Lab 02/26/16 04:48 02/26/16 04:48 Most recent lab results ABG pH 7.381 (7.35-7.45) 02/24/16 09:38 ABG pCO2 47.7 MM HG (35-48) 02/24/16 09:38 ABG pO2 93.4 MM HG (80-95) 02/24/16 09:38 ABG HCO3 26.7 MMOL/L (20-26) H 02/24/16 09:38 ABG O2 Saturation 97.5 % (95-100) 02/24/16 09:38 Calcium 7.8 MG/DL (8.5-10.1) L 02/26/16 04:48 Magnesium 2.1 MG/DL (1.8-2.4) 02/23/16 02:24 Assessment and Plan (1) Acute renal failure Status: Acute Assessment and plan: Renal function recovered. No new recommendations will sign off. Continue current management. Current Visit: No Specialty Discharge - Follow Up or Referrals - Discharge Medications No Action Lisinopril [Prinivil] 10 mg PO DAILY tablet chlordiazePOXIDE [Librium] 25 mg PO Q6H #12 capsule Pantoprazole Tab [Protonix Tab] 40 mg PO DAILY #30 tablet
[2016-02-27] MEDS: NYSTATIN POWDER 15 GM BOTTLE TOP SCH ×4 (01:33→22:35)
[2016-02-27] MEDS: DEXTROSE 5% 1,000 ML IV SCH (01:51)
[2016-02-27] MEDS: ALBUTEROL/IPRATROPIUM 3 ML NEB RESP TX SCH ×4 (03:33→20:07)
[2016-02-27] MEDS: oxyCODONE/ACETAMINOPHEN 5-325 MG TABLET PO PRN (06:00)
[2016-02-27 06:44] LABS: Basophils % 0.3 % (0.0-0.8); Eosinophils # 0.3 10*3/uL (0.0-0.87); Eosinophils % 2.8 % (0.00-10.9); Hematocrit 29.2 VOL% (42.0-52.0); Hemoglobin 9.5 GM/DL (14.0-18.0); Immature Granulocytes % 0.9 %; Lymphocytes # 1.4 10*3/uL (1.4-4.0); Lymphocytes % 12.9 % (21.2-54.2); Mean Corpuscular HGB Conc 32.5 GM/DL (32-36); Mean Corpuscular Hemoglobin 30 PG (27-34); Mean Corpuscular Volume 91.5 FL (87-102); Monocytes # 1.1 10*3/uL (0.11-0.8); Monocytes % 10.1 % (1.7-12.7); Neutrophils # 7.9 10*3/uL (1.4-7.4); Platelet Count 125 10*3/uL (130-400); Red Blood Count 3.19 10*6/uL (3.8-5.5); Red Cell Distribution Width 24.3 % (9.3-17.3); White Blood Count 10.8 10*3/uL (4.5-13.71)
[2016-02-27 07:15] LABS: Albumin 1.7 G/DL (3.4-5.0); Bilirubin,Total 2.2 MG/DL (0.2-1.0); Total Protein 5.2 G/DL (6.4-8.3)
[2016-02-27 07:33] LABS: Hypochromasia 1+; Ovalocytes Slight; Platelet Estimate Normal; Target Cells Few
[2016-02-27] MEDS: PANTOPRAZOLE 40 MG VIAL IV SCH (10:35)
[2016-02-27] MEDS: FOLIC ACID INJ 1 MG in SYRINGE 1 EACH IV SCH (10:36)
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
[2016-02-27] MEDS: RIFAXIMIN 550 MG TABLET PO SCH ×2 (10:50→22:32)
[2016-02-27] MEDS: DESITIN 4OZ/NYSTATIN 15 GRAM MIXTURE PASTE TOP SCH ×2 (10:50→22:33)
[2016-02-27] MEDS: THIAMINE 200 MG/2 ML VIAL IV SCH (10:50)
[2016-02-27] MEDS: PROPRANOLOL 20 MG TABLET PO SCH ×2 (10:50→22:32)
[2016-02-27] MEDS: NICOTINE 21 MG/24 HR PATCH TRANSDERM SCH (10:51)
[2016-02-27] MEDS: LACTULOSE 20 GM/30 ML UDCUP PO SCH ×2 (10:51→11:09)
--- NOTE | 2016-02-27 12:06 | Hospitalist Progress Note ---
Assessment and Plan (1) Septic shock Status: Acute Assessment and plan: resolved, unclear etiology, enterococcus in urine could be contaminant. Dr Alec has stopped his abx Current Visit: Yes (2) Acute on chronic renal failure Status: Acute Assessment and plan: improving with hydration Current Visit: Yes (3) Delirium tremens Status: Acute Assessment and plan: decrease lactulose and cont rifaxmin,ammonia level normal Current Visit: Yes (4) Severe dehydration Status: Acute Assessment and plan: resolving Current Visit: Yes (5) Fracture of femoral neck, left Status: Acute Assessment and plan: Dr. Vargas does not plan to fix his hip at this point Current Visit: No (6) Acute blood loss anemia Status: Resolved Assessment and plan: Status post EGD today showed erosive duodenitis, moderately severe patchy gastritis, 1.2 cm duodenal bulb deep ulcer, class D erosive esophagitis. Continue Protonix. Current Visit: No Hospitalist: Subjective Interval history: Patient really wants to go home today but I am really not comfortable with him leaving so soon after moving him out of the ICU. He still needs to get his hip fixed but he is going to get healthier first. I told him if he goes home soon and drinks and smokes and does not get stronger the doctor and will not do his surgery. Exam - Constitutional Vitals: Period Temp Pulse Resp BP Sys/Jacob Pulse Ox Last 24 Hr 97.2 F-98.8 F 80-94 16-20 80-92/53-58 92-100 Exam: Heart Rate-[RRR] Lungs-[clear ] GI-[+bs soft, NT] Ext-[no edema] neuro motor 5/5, intact, alert and oriented times 3 psych normal mood and affect general no acute distress Results - Labs CBC & BMP: 02/27/16 05:57 02/27/16 05:57 Lab Results: I have reviewed the past 24 hour labs Labs: Cultures 2 were negative. Urine is growing enterococcus. Quality Measures - VTE Contraindication to Pharmacological VTE Prophylaxis: Active Bleeding - Stroke Symptom Onset Unknown: No Specialty Discharge - Follow Up or Referrals - Discharge Medications No Action Lisinopril [Prinivil] 10 mg PO DAILY tablet chlordiazePOXIDE [Librium] 25 mg PO Q6H #12 capsule Pantoprazole Tab [Protonix Tab] 40 mg PO DAILY #30 tablet
[2016-02-28] MEDS: ALBUTEROL/IPRATROPIUM 3 ML NEB RESP TX SCH ×3 (00:38→12:54)
[2016-02-28] MEDS: oxyCODONE/ACETAMINOPHEN 5-325 MG TABLET PO PRN ×2 (01:11→08:26)
[2016-02-28] MEDS: RIFAXIMIN 550 MG TABLET PO SCH (08:25)
[2016-02-28] MEDS: PROPRANOLOL 20 MG TABLET PO SCH (08:25)
[2016-02-28] MEDS: NICOTINE 21 MG/24 HR PATCH TRANSDERM SCH (08:27)
[2016-02-28] MEDS: LACTULOSE 20 GM/30 ML UDCUP PO SCH (08:28)
[2016-02-28] MEDS: DESITIN 4OZ/NYSTATIN 15 GRAM MIXTURE PASTE TOP SCH (08:31)
[2016-02-28] MEDS: NYSTATIN POWDER 15 GM BOTTLE TOP SCH (08:32)
[2016-02-28] MEDS ORDERED: THIAMINE 100 MG TABLET PO SCH (09:00)
[2016-02-28] MEDS ORDERED: FOLIC ACID 1 MG TABLET PO SCH (09:00)
[2016-02-28] MEDS ORDERED: INFLUENZA VIRUS VACCINE 0.5 ML SYRINGE IM ONE (11:30)
[2016-02-28 13:08] VITALS: BP 87/54
== END 2016-02-28 14:05 | disposition home or self-care (01) | DRG 871 ==
LOC: EDBD → EDUNIT# → N.ED 12:06 → N.EDINP 14:10 → N.CC 15:09 → N.2E 02-26 12:24
PROVIDERS: ADMIT Internal Medicine; ATTEND Internal Medicine

== ENCOUNTER 2016-03-17 07:34 | Inpatient (IN) ==
[2016-03-17] MEDS ORDERED: SODIUM CHLORIDE 0.9% 1,000 ML IV STA (08:29)
[2016-03-17 08:40] LABS: Basophils % 0.3 % (0.0-0.8); Eosinophils # 0.1 10*3/uL (0.0-0.87); Hematocrit 37.8 VOL% (42.0-52.0); Hemoglobin 11.5 GM/DL (14.0-18.0); Immature Granulocytes % 0.3 %; Immature Granulocytes Absolute 0.04 #; Lymphocytes # 1.9 10*3/uL (1.4-4.0); Lymphocytes % 16.8 % (21.2-54.2); Mean Corpuscular HGB Conc 30.4 GM/DL (32-36); Mean Corpuscular Hemoglobin 31 PG (27-34); Mean Corpuscular Volume 102.2 FL (87-102); Mean Platelet Volume 11.9 FL (9.6-12.0); Monocytes # 0.7 10*3/uL (0.11-0.8); Monocytes % 5.7 % (1.7-12.7); Neutrophils # 8.7 10*3/uL (1.4-7.4); Neutrophils % 75.9 % (38.7-73.9); Platelet Count 271 10*3/uL (130-400); Red Cell Distribution Width 20.8 % (9.3-17.3); White Blood Count 11.5 10*3/uL (4.5-13.71)
[2016-03-17 08:46] LABS: INR 1.5; PT Patient Result 16.1 SECS
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
[2016-03-17 09:19] LABS: Albumin 2.2 G/DL (3.4-5.0); Bilirubin,Total 1.4 MG/DL (0.2-1.0); Calcium 8.4 MG/DL (8.5-10.1); Osmolality,Calculated 294.3 MOS/KG (273-304); Potassium 4.3 MMOL/L (3.5-5.1); Thyroid Stimulating Hormone 8.97 uIU/ml (0.358-3.74); Total Protein 6.8 G/DL (6.4-8.3)
--- NOTE | 2016-03-17 09:27 | XRay Report ---
XR chest 1V portable Indication: Altered mental status Comparison: Chest x-ray dated February 24, 2016 Technique: Single frontal view of the chest Findings: Cardiomediastinal silhouette is stable in configuration. No focal consolidation, pleural effusion, or pneumothorax. Osseous and surrounding soft tissue structures appear grossly unchanged. IMPRESSION: Stable chest x-ray without acute cardiopulmonary process demonstrated. PROCEDURE INTERPRETED AT [facility] DEPARTMENT OF RADIOLOGY Final Report Signed by: Dr Nelson Lobo
--- NOTE | 2016-03-17 09:49 | XRay Report ---
5 views of left hips and AP pelvis. Comparison: February 21, 2016. Indication: Injury with pain. The pubic symphysis and SI joints are of normal width. The right hip has a normal appearance. There is abnormality present on the left, with osteophyte formation an altered contour of the left acetabulum. A small portion of the femoral head epiphysis is seen within the acetabulum. A large portion of the left femoral neck and head at either been removed or resorbed. There is metallic hardware within the proximal shaft and trochanteric portion of the left proximal femur, with the dominant screw being proud the configuration is similar to the January exam. No acute fracture lines are noted. The angulation and configuration of the bones of the left hip remained stable. Impression: 1. No change is seen. Postsurgical changes are present. Most of the left head and neck are either surgically removed or resorbed. PROCEDURE INTERPRETED AT [facility] DEPARTMENT OF RADIOLOGY Final Report Signed by: Dr. Dinorah Jones
[2016-03-17 10:03] LABS: Apearance,Urine CLEAR (Clear); Bacteria,Urine Occasional /HPF (Few); Bilirubin,Urine Negative (Negative); Blood, Urine Negative (Negative); Glucose,Urine (UA) Negative (Negative); Ketones,Urine 5 mg/dL (Negative); Mucus,Urine Occasional /LPF (Occasional); Nitrite,Urine Negative (Negative); Protein,Urine 30 MG/DL; RBC,Urine 2 /HPF (0-4); Squamous Epithelial Cell,Urine Occasional /HPF (0-10); Urine Color Dark yellow (Yellow); Urine Specific Gravity 1.019 (1.001-1.035); WBC,Urine 2 /HPF (0-6)
[2016-03-17 10:07] LABS: Barbiturates Screen,Urine Negative (Negative); Benzodiazepines Screen,Urine Positive (Negative); Cannabinoid Screen,Urine Negative (Negative); Opiate Screen,Urine Negative (Negative); Phencyclidine Screen,Urine Negative (Negative)
[2016-03-17] MEDS ORDERED: ONDANSETRON 4 MG/2 ML VIAL IV PRN (10:36)
[2016-03-17] MEDS ORDERED: LACTULOSE 20 GM/30 ML UDCUP PO PRN (10:36)
[2016-03-17] MEDS ORDERED: MORPHINE 2 MG/1 ML SYRINGE IV PRN (10:36)
[2016-03-17] MEDS ORDERED: ACETAMINOPHEN 325 MG TABLET PO PRN (10:36)
[2016-03-17] MEDS: ENOXAPARIN 40 MG/0.4 ML SYRINGE SUBCUT SCH (11:10)
[2016-03-17] MEDS ORDERED: ENOXAPARIN 40 MG/0.4 ML SYRINGE ONE (11:10)
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
[2016-03-17] MEDS: SODIUM CHLORIDE 0.9% 1,000 ML IV SCH (13:06)
--- NOTE | 2016-03-17 14:25 | Ultrasound Report ---
Left lower extremity venous Doppler with orlando scale, Spectral Doppler and color-flow analysis performed and interpreted. Indication: Edema Scanning over the left common femoral vein, superficial femoral vein, greater saphenous vein and popliteal vein demonstrates normal compressibility, color flow, and augmentation. Impression: No evidence of left lower extremity deep venous thrombosis. PROCEDURE INTERPRETED AT [facility] DEPARTMENT OF RADIOLOGY Final Report Signed by: Dr. Dinorah Jones
[2016-03-17] MEDS: PROPRANOLOL 20 MG TABLET PO SCH (21:50)
[2016-03-18] MEDS: SODIUM CHLORIDE 0.9% 1,000 ML IV SCH ×2 (00:25→09:51)
[2016-03-18 06:11] LABS: Basophils % 0.3 % (0.0-0.8); Eosinophils # 0.2 10*3/uL (0.0-0.87); Eosinophils % 1.3 % (0.00-10.9); Hematocrit 29.2 VOL% (42.0-52.0); Hemoglobin 8.7 GM/DL (14.0-18.0); Immature Granulocytes % 0.5 %; Immature Granulocytes Absolute 0.07 #; Lymphocytes # 2.5 10*3/uL (1.4-4.0); Lymphocytes % 17.4 % (21.2-54.2); Mean Corpuscular HGB Conc 29.8 GM/DL (32-36); Mean Corpuscular Hemoglobin 30 PG (27-34); Mean Platelet Volume 11.7 FL (9.6-12.0); Monocytes # 1.1 10*3/uL (0.11-0.8); Monocytes % 7.4 % (1.7-12.7); Neutrophils # 10.3 10*3/uL (1.4-7.4); Neutrophils % 73.1 % (38.7-73.9); Platelet Count 217 10*3/uL (130-400); Red Blood Count 2.89 10*6/uL (3.8-5.5); Red Cell Distribution Width 21.1 % (9.3-17.3); White Blood Count 14.1 10*3/uL (4.5-13.71)
[2016-03-18 07:04] LABS: Albumin 1.8 G/DL (3.4-5.0); Bilirubin,Total 1.4 MG/DL (0.2-1.0); Calcium 7.8 MG/DL (8.5-10.1); Total Protein 5.3 G/DL (6.4-8.3)
[2016-03-18] MEDS: LACTULOSE 20 GM/30 ML UDCUP PO SCH (09:49)
[2016-03-18] MEDS: PROPRANOLOL 20 MG TABLET PO SCH ×2 (09:49→21:12)
[2016-03-18] MEDS: THIAMINE 100 MG TABLET PO SCH (09:50)
[2016-03-18] MEDS: FOLIC ACID 1 MG TABLET PO SCH (09:50)
[2016-03-18] MEDS: PANTOPRAZOLE 40 MG TABLET PO SCH (09:51)
[2016-03-18] MEDS: DESITIN 4OZ/NYSTATIN 15 GRAM MIXTURE PASTE TOP SCH ×2 (12:53→21:12)
[2016-03-18] MEDS: ENOXAPARIN 40 MG/0.4 ML SYRINGE SUBCUT SCH (12:53)
--- NOTE | 2016-03-18 13:29 | Hospitalist Progress Note ---
Assessment and Plan (1) HTN (hypertension) Status: Acute Assessment and plan: continue with current care Current Visit: No (2) Dehydration Status: Acute Assessment and plan: continue with IVF Current Visit: Yes (3) Hypernatremia Status: Acute Assessment and plan: will switch to half normal saline Current Visit: Yes (4) Elevated TSH Status: Acute Assessment and plan: will repeat levels Current Visit: Yes (5) Altered mental status Status: Acute Assessment and plan: will get a CT head, BC- no growth so far Current Visit: Yes (6) Cirrhosis Status: Acute Assessment and plan: with ascites.Continue to monitor Current Visit: Yes Hospitalist: Subjective Interval history: Patient seen, his doppler USS was negative for a DVT. Exam - Constitutional Vitals: Period Temp Pulse Resp BP Sys/Jacob Pulse Ox Last 24 Hr 97.1 F-97.9 F 89-119 18-24 83-145/49-89 90-98 General appearance: no acute distress - Head Head exam: Present: normal inspection - Respiratory Respiratory exam: Present: clear to auscultation bilaterally - Cardiovascular Cardiovascular exam: Present: regular rate and rhythm - GI/Abdominal GI/Abdominal exam: Present: normal bowel sounds - Extremities Exam Extremities exam: Present: edema Results - Labs CBC & BMP: 03/18/16 06:00 03/18/16 06:00 Lab Results: I have reviewed the past 24 hour labs
--- NOTE | 2016-03-18 14:55 | CT Report ---
History is altered mental status, altered LOC Comparison 02/21/2016 The ventricles are normal in size. No acute intracranial hemorrhage, mass effect, or evidence of acute cortical stroke seen. There is fluid in the mastoid air cells in the right Impression: Right mastoid air cell fluid. No acute intracranial pathology seen. PROCEDURE INTERPRETED AT [facility] DEPARTMENT OF RADIOLOGY Final Report Signed by: Dr. Roseanna Jones
[2016-03-18] MEDS: SODIUM CHLORIDE 0.45% 1,000 ML IV SCH (17:18)
[2016-03-18] MEDS ORDERED: ALBUTEROL/IPRATROPIUM 3 ML NEB RESP TX PRN (17:34)
[2016-03-19 06:21] LABS: Basophils # 0.1 10*3/uL (0.0-0.2); Basophils % 0.4 % (0.0-0.8); Eosinophils # 0.2 10*3/uL (0.0-0.87); Eosinophils % 1.1 % (0.00-10.9); Hematocrit 32.1 VOL% (42.0-52.0); Hemoglobin 9.7 GM/DL (14.0-18.0); Immature Granulocytes % 0.6 %; Immature Granulocytes Absolute 0.11 #; Lymphocytes # 2.6 10*3/uL (1.4-4.0); Mean Corpuscular HGB Conc 30.2 GM/DL (32-36); Mean Corpuscular Hemoglobin 31 PG (27-34); Mean Corpuscular Volume 102.9 FL (87-102); Mean Platelet Volume 11.7 FL (9.6-12.0); Monocytes # 1.2 10*3/uL (0.11-0.8); Monocytes % 6.8 % (1.7-12.7); Neutrophils % 76.1 % (38.7-73.9); Platelet Count 235 10*3/uL (130-400); Red Blood Count 3.12 10*6/uL (3.8-5.5); Red Cell Distribution Width 20.8 % (9.3-17.3); White Blood Count 17.1 10*3/uL (4.5-13.71)
[2016-03-19 06:52] LABS: Bilirubin,Total 1.4 MG/DL (0.2-1.0); Calcium 8.1 MG/DL (8.5-10.1); Osmolality,Calculated 289.6 MOS/KG (273-304); Potassium 3.8 MMOL/L (3.5-5.1)
[2016-03-19] MEDS: LACTULOSE 20 GM/30 ML UDCUP PO SCH (10:03)
[2016-03-19] MEDS: FOLIC ACID 1 MG TABLET PO SCH (10:04)
[2016-03-19] MEDS: PANTOPRAZOLE 40 MG TABLET PO SCH (10:04)
[2016-03-19] MEDS: PROPRANOLOL 20 MG TABLET PO SCH ×2 (10:04→20:39)
[2016-03-19] MEDS: DESITIN 4OZ/NYSTATIN 15 GRAM MIXTURE PASTE TOP SCH ×2 (10:05→20:39)
[2016-03-19] MEDS: THIAMINE 100 MG TABLET PO SCH (10:05)
[2016-03-19] MEDS: ENOXAPARIN 40 MG/0.4 ML SYRINGE SUBCUT SCH (10:07)
--- NOTE | 2016-03-19 11:22 | Hospitalist Progress Note ---
Assessment and Plan (1) HTN (hypertension) Status: Acute Assessment and plan: continue with current care Current Visit: No (2) Dehydration Status: Acute Assessment and plan: improved, dc IVF Current Visit: Yes (3) Hypernatremia Status: Acute Assessment and plan: improved, consider free water po Current Visit: Yes (4) Elevated TSH Status: Acute Assessment and plan: will repeat levels Current Visit: Yes (5) Altered mental status Status: Acute Assessment and plan: CT head-negative, will repeat ammonia level, BC- no growth so far Current Visit: Yes (6) Cirrhosis Status: Acute Assessment and plan: with ascites that is worsening -IR to tap -GI consult D/c IVF -start aldactone 25daily, follow response Current Visit: Yes Hospitalist: Subjective Interval history: Patient seen, ascites is getting worse. Exam - Constitutional Vitals: Period Temp Pulse Resp BP Sys/Jacob Pulse Ox Last 24 Hr 97.1 F-98.7 F 85-92 18-24 103-123/69-89 92-99 General appearance: no acute distress, other (lethargic) - Head Head exam: Present: normal inspection - Respiratory Respiratory exam: Present: decreased breath sounds - Cardiovascular Cardiovascular exam: Present: regular rate and rhythm - GI/Abdominal GI/Abdominal exam: Present: ascites, distended - Extremities Exam Extremities exam: Present: edema Results - Labs CBC & BMP: 03/19/16 05:54 03/19/16 05:54 Lab Results: I have reviewed the past 24 hour labs
[2016-03-19] MEDS: SODIUM CHLORIDE 0.45% 1,000 ML IV SCH (11:29)
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
[2016-03-19 16:02] LABS: Total Protein,Body Fluid < 1.0 G/DL
[2016-03-19] MEDS ORDERED: cefTRIAXone 1,000 MG VIAL IM SCH (17:00)
[2016-03-19] MEDS: SPIRONOLACTONE 25 MG TABLET PO SCH (17:14)
[2016-03-19] MEDS ORDERED: SODIUM CHLORIDE 0.9% 0 ML IV ONE (17:16)
[2016-03-20 05:51] LABS: Basophils % 0.3 % (0.0-0.8); Eosinophils # 0.1 10*3/uL (0.0-0.87); Eosinophils % 1.1 % (0.00-10.9); Hematocrit 34.9 VOL% (42.0-52.0); Hemoglobin 10.5 GM/DL (14.0-18.0); Immature Granulocytes % 0.7 %; Immature Granulocytes Absolute 0.09 #; Lymphocytes # 2.6 10*3/uL (1.4-4.0); Lymphocytes % 20.9 % (21.2-54.2); Mean Corpuscular HGB Conc 30.1 GM/DL (32-36); Mean Corpuscular Hemoglobin 30 PG (27-34); Mean Platelet Volume 12.2 FL (9.6-12.0); Monocytes # 0.8 10*3/uL (0.11-0.8); Monocytes % 6.4 % (1.7-12.7); Neutrophils # 8.6 10*3/uL (1.4-7.4); Neutrophils % 70.6 % (38.7-73.9); Platelet Count 203 10*3/uL (130-400); Red Blood Count 3.49 10*6/uL (3.8-5.5); White Blood Count 12.2 10*3/uL (4.5-13.71)
[2016-03-20 06:30] LABS: Albumin 1.9 G/DL (3.4-5.0); Bilirubin,Total 1.4 MG/DL (0.2-1.0); Calcium 8.2 MG/DL (8.5-10.1); Osmolality,Calculated 286.7 MOS/KG (273-304); Potassium 3.6 MMOL/L (3.5-5.1); Total Protein 5.9 G/DL (6.4-8.3)
[2016-03-20] MEDS: LACTULOSE 20 GM/30 ML UDCUP PO SCH (08:25)
[2016-03-20] MEDS: SPIRONOLACTONE 25 MG TABLET PO SCH (08:25)
[2016-03-20] MEDS: FOLIC ACID 1 MG TABLET PO SCH (08:26)
[2016-03-20] MEDS: ENOXAPARIN 40 MG/0.4 ML SYRINGE SUBCUT SCH (08:26)
[2016-03-20] MEDS: PROPRANOLOL 20 MG TABLET PO SCH ×2 (08:26→21:12)
[2016-03-20] MEDS: THIAMINE 100 MG TABLET PO SCH (08:27)
[2016-03-20] MEDS: PANTOPRAZOLE 40 MG TABLET PO SCH (08:27)
[2016-03-20] MEDS: DESITIN 4OZ/NYSTATIN 15 GRAM MIXTURE PASTE TOP SCH ×2 (08:31→21:12)
--- NOTE | 2016-03-20 13:35 | Hospitalist Progress Note ---
Assessment and Plan (1) HTN (hypertension) Status: Acute Assessment and plan: continue with current care Current Visit: No (2) Dehydration Status: Acute Assessment and plan: improved Current Visit: Yes (3) Hypernatremia Status: Acute Assessment and plan: improving Current Visit: Yes (4) Elevated TSH Status: Acute Assessment and plan: will repeat levels when stable Current Visit: Yes (5) Altered mental status Status: Acute Assessment and plan: most likely secondary to hepatic encephalopathy, CT head-negative, BC- no growth so far -continue with lactulose -repeat ammonia level Current Visit: Yes (6) Cirrhosis Status: Acute Assessment and plan: s/p ascitic tap, he had 3300cc of fluid drained yesterday -appreciates GI's input -continue aldactone 25daily Current Visit: Yes Hospitalist: Subjective Interval history: Patient seen,he was confused,he had an USS guided paracentesis yesterday draining 3300cc of fluid. Exam - Constitutional Vitals: Period Temp Pulse Resp BP Sys/Jacob Pulse Ox Last 24 Hr 97.6 F-98.3 F 74-90 18-20 92-117/50-72 90-95 General appearance: no acute distress, other (confused) - Head Head exam: Present: normal inspection - Respiratory Respiratory exam: Present: decreased breath sounds - Cardiovascular Cardiovascular exam: Present: regular rate and rhythm - GI/Abdominal GI/Abdominal exam: Present: ascites (reducing edema) - Extremities Exam Extremities exam: Present: other (reducing edema) Results - Labs CBC & BMP: 03/20/16 05:19 03/20/16 05:19 Lab Results: I have reviewed the past 24 hour labs
[2016-03-20] MEDS ORDERED: cefTRIAXone 1,000 MG VIAL IV SCH (14:23)
--- NOTE | 2016-03-20 15:21 | Gastrointestinal Progress Note ---
Assessment and Plan (1) Cirrhosis Status: Acute Assessment and plan: Patient clinically stable although still with mild symptoms of hepatic encephalopathy. Cultures from ascites fluid have been negative so far but would continue empiric IV Rocephin for at least another day. Continue lactulose therapy. He has had general decline with end-stage liver disease and prognosis is poor. Current Visit: Yes Gastroenterology - PN: Subj Interval history: Patient awake but still slightly lethargic. Denies abdominal pain or nausea. No gross GI bleeding has been noted. He is having bowel movements on lactulose. Exam (Progress Note) - Constitutional Vitals: Period Temp Pulse Resp BP Sys/Jacob Pulse Ox Last 24 Hr 97.6 F-98.3 F 74-90 18-20 92-117/50-72 90-95 General appearance: no acute distress, under weight (Chronically ill-appearing) - Head Head exam: Present: normocephalic, atraumatic - Eye Eye exam: Present: EOMI - Respiratory Respiratory exam: Present: clear to auscultation bilaterally. Absent: wheezes - Cardiovascular Cardiovascular exam: Present: regular rate and rhythm. Absent: gallop, rubs - GI/Abdominal GI/Abdominal exam: Present: normal bowel sounds, ascites, distended, soft. Absent: tenderness - Extremities Exam Extremities exam: Absent: calf tenderness, edema - Neurological Exam Neurological exam: Present: alert, oriented X3, CN II-XII intact - Skin Skin exam: Present: warm, dry Results - Labs CBC & BMP: 03/20/16 05:19 03/20/16 05:19 Lab Results: I have reviewed the past 24 hour labs
[2016-03-20] MEDS ORDERED: SODIUM CHLORIDE 0.9% 100 ML IV ONE (15:48)
[2016-03-21 05:27] LABS: Basophils # 0.1 10*3/uL (0.0-0.2); Basophils % 0.4 % (0.0-0.8); Eosinophils # 0.2 10*3/uL (0.0-0.87); Eosinophils % 1.1 % (0.00-10.9); Hematocrit 32.2 VOL% (42.0-52.0); Hemoglobin 9.7 GM/DL (14.0-18.0); Immature Granulocytes % 0.9 %; Immature Granulocytes Absolute 0.13 #; Lymphocytes # 2.2 10*3/uL (1.4-4.0); Lymphocytes % 15.8 % (21.2-54.2); Mean Corpuscular HGB Conc 30.1 GM/DL (32-36); Mean Corpuscular Hemoglobin 31 PG (27-34); Mean Corpuscular Volume 101.9 FL (87-102); Monocytes # 0.9 10*3/uL (0.11-0.8); Monocytes % 6.6 % (1.7-12.7); Neutrophils # 10.3 10*3/uL (1.4-7.4); Neutrophils % 75.2 % (38.7-73.9); Platelet Count 187 10*3/uL (130-400); Red Blood Count 3.16 10*6/uL (3.8-5.5); Red Cell Distribution Width 20.2 % (9.3-17.3); White Blood Count 13.7 10*3/uL (4.5-13.71)
[2016-03-21 06:02] LABS: Albumin 1.9 G/DL (3.4-5.0); Bilirubin,Total 1.5 MG/DL (0.2-1.0); Total Protein 5.6 G/DL (6.4-8.3)
[2016-03-21 06:03] LABS: Osmolality,Calculated 291.4 MOS/KG (273-304); Potassium 3.4 MMOL/L (3.5-5.1)
[2016-03-21] MEDS: SPIRONOLACTONE 25 MG TABLET PO SCH (09:23)
[2016-03-21] MEDS: FOLIC ACID 1 MG TABLET PO SCH (09:24)
[2016-03-21] MEDS: PROPRANOLOL 20 MG TABLET PO SCH ×2 (09:24→21:07)
[2016-03-21] MEDS: LACTULOSE 20 GM/30 ML UDCUP PO SCH (09:24)
[2016-03-21] MEDS: ENOXAPARIN 40 MG/0.4 ML SYRINGE SUBCUT SCH (09:24)
[2016-03-21] MEDS: THIAMINE 100 MG TABLET PO SCH (09:25)
[2016-03-21] MEDS: PANTOPRAZOLE 40 MG TABLET PO SCH (09:25)
[2016-03-21] MEDS: DESITIN 4OZ/NYSTATIN 15 GRAM MIXTURE PASTE TOP SCH ×2 (09:26→21:07)
--- NOTE | 2016-03-21 12:09 | Gastrointestinal Progress Note ---
Assessment and Plan (1) Cirrhosis Status: Acute Assessment and plan: Patient clinically stable although still with mild symptoms of hepatic encephalopathy. Cultures from ascites fluid have been negative so far but would continue empiric IV Rocephin for at least another day. Continue lactulose therapy. He has had general decline with end-stage liver disease and prognosis is poor. 01/19 50-year-old male with alcoholic cirrhosis complicated by ascites and hepatic encephalopathy is slightly improved. Laboratory data reviewed. Ascites cultures negative at 48 hours and could probably discontinue Rocephin. Discussed with family regarding his poor prognosis. Hospice care would be a consideration. Continue lactulose and Aldactone/Lasix. Current Visit: Yes Gastroenterology - PN: Subj Interval history: Patient seems more alert but still slightly confused. Denies abdominal pain or nausea. He is weak and unable to stand on his own. Family is at bedside. Exam (Progress Note) - Constitutional Vitals: Period Temp Pulse Resp BP Sys/Jacob Pulse Ox Last 24 Hr 97.9 F-98.7 F 80-88 17-20 96-132/66-71 93-100 General appearance: no acute distress, under weight (Chronically ill-appearing) - Head Head exam: Present: normocephalic, atraumatic - Eye Eye exam: Present: EOMI - Respiratory Respiratory exam: Present: clear to auscultation bilaterally. Absent: wheezes - Cardiovascular Cardiovascular exam: Present: regular rate and rhythm. Absent: gallop, rubs - GI/Abdominal GI/Abdominal exam: Present: normal bowel sounds, ascites, soft. Absent: tenderness - Extremities Exam Extremities exam: Absent: calf tenderness, edema - Neurological Exam Neurological exam: Present: alert, CN II-XII intact. Absent: motor sensory deficit - Skin Skin exam: Present: warm, dry Results - Labs CBC & BMP: 03/21/16 05:03 03/21/16 05:03 Lab Results: I have reviewed the past 24 hour labs
[2016-03-21] MEDS: FUROSEMIDE 20 MG TABLET PO SCH (12:20)
--- NOTE | 2016-03-21 12:34 | Hospitalist Progress Note ---
Assessment and Plan (1) HTN (hypertension) Status: Acute Assessment and plan: continue with current care Current Visit: No (2) Dehydration Status: Acute Assessment and plan: improved Current Visit: Yes (3) Hypernatremia Status: Acute Assessment and plan: improving slowly Current Visit: Yes (4) Elevated TSH Status: Acute Assessment and plan: will repeat levels when stable Current Visit: Yes (5) Altered mental status Status: Acute Assessment and plan: most likely secondary to hepatic encephalopathy, CT head-negative, BC- no growth so far -continue with lactulose -repeat ammonia level Current Visit: Yes (6) Cirrhosis Status: Acute Assessment and plan: s/p ascitic tap, he had 3300cc of fluid drained yesterday -appreciates GI's input -continue aldactone 25daily, will give some albumin as well. -agree to dc antibiotics, cultures were negative Current Visit: Yes Hospitalist: Subjective Interval history: patient seen, not much improvement, patient is still confused, ammonia level is slowly coming down. Exam - Constitutional Vitals: Period Temp Pulse Resp BP Sys/Jacob Pulse Ox Last 24 Hr 97.9 F-98.7 F 80-88 17-20 96-132/66-71 93-100 General appearance: no acute distress, other (confused) - Head Head exam: Present: normal inspection - Respiratory Respiratory exam: Present: decreased breath sounds - Cardiovascular Cardiovascular exam: Present: regular rate and rhythm - GI/Abdominal GI/Abdominal exam: Present: ascites - Extremities Exam Extremities exam: Present: edema Results - Labs CBC & BMP: 03/21/16 05:03 03/21/16 05:03 Lab Results: I have reviewed the past 24 hour labs
[2016-03-21] MEDS: ALBUMIN 25% 25 GM in PREMIX 1 EACH IV SCH ×2 (13:50→20:43)
[2016-03-22 05:42] LABS: Basophils % 0.4 % (0.0-0.8); Eosinophils # 0.1 10*3/uL (0.0-0.87); Eosinophils % 1.2 % (0.00-10.9); Hemoglobin 8.5 GM/DL (14.0-18.0); Immature Granulocytes % 0.8 %; Immature Granulocytes Absolute 0.09 #; Lymphocytes # 2.2 10*3/uL (1.4-4.0); Lymphocytes % 19.7 % (21.2-54.2); Mean Corpuscular HGB Conc 30.4 GM/DL (32-36); Mean Corpuscular Hemoglobin 31 PG (27-34); Mean Corpuscular Volume 101.4 FL (87-102); Mean Platelet Volume 12.8 FL (9.6-12.0); Monocytes # 0.8 10*3/uL (0.11-0.8); Monocytes % 7.1 % (1.7-12.7); Neutrophils # 7.7 10*3/uL (1.4-7.4); Neutrophils % 70.8 % (38.7-73.9); Platelet Count 168 10*3/uL (130-400); Red Blood Count 2.76 10*6/uL (3.8-5.5); Red Cell Distribution Width 20.2 % (9.3-17.3); White Blood Count 10.9 10*3/uL (4.5-13.71)
[2016-03-22 06:15] LABS: Calcium 7.9 MG/DL (8.5-10.1); Osmolality,Calculated 283.8 MOS/KG (273-304); Potassium 3.4 MMOL/L (3.5-5.1)
[2016-03-22] MEDS: ALBUMIN 25% 25 GM in PREMIX 1 EACH IV SCH ×2 (08:53→22:59)
[2016-03-22] MEDS: LACTULOSE 20 GM/30 ML UDCUP PO SCH (08:54)
[2016-03-22] MEDS: SPIRONOLACTONE 25 MG TABLET PO SCH (08:54)
[2016-03-22] MEDS: oxyCODONE IR 5 MG TABLET PO PRN (08:55)
[2016-03-22] MEDS: PROPRANOLOL 20 MG TABLET PO SCH ×2 (08:55→21:39)
[2016-03-22] MEDS: THIAMINE 100 MG TABLET PO SCH (08:55)
[2016-03-22] MEDS: PANTOPRAZOLE 40 MG TABLET PO SCH (08:55)
[2016-03-22] MEDS: FOLIC ACID 1 MG TABLET PO SCH (08:56)
[2016-03-22] MEDS: FUROSEMIDE 20 MG TABLET PO SCH (08:56)
[2016-03-22] MEDS: DESITIN 4OZ/NYSTATIN 15 GRAM MIXTURE PASTE TOP SCH ×2 (08:57→21:39)
[2016-03-22] MEDS: ENOXAPARIN 40 MG/0.4 ML SYRINGE SUBCUT SCH (08:57)
--- NOTE | 2016-03-22 10:24 | Gastrointestinal Progress Note ---
Assessment and Plan (1) Cirrhosis Status: Acute Assessment and plan: 03/22-Alert, oriented. Bm x 2. No c/o at present. Plan and addendum to follow by DR Sanchez. 03/19-History of alcoholic cirrhosis in past, now with ascites. Elevated LFTs ( has been baseline elevated over past several months). No new imaging on admission. IR to consult for paracentesis today. Plan and addendum to follow by Dr Sanchez. Current Visit: Yes Gastroenterology - PN: Subj Interval history: CC: Cirrhosis Pt is seen, more alert today, family at side. He has no complaints at present of pain. He had low grade temp earlier this morning but afebrile now. Hemoglobin is 8.5. No recheck on ammonia level today however he is having bowel movements, two today already. His weight has trended down since admission. Abdomen is soft, nondistended. ROS: Denies SOB or chest pain Exam (Progress Note) - Constitutional Vitals: Period Temp Pulse Resp BP Sys/Jacob Pulse Ox Last 24 Hr 97.2 F-99.4 F 72-88 18-20 90-113/56-84 93-98 General appearance: normal weight, no acute distress - Head Head exam: Present: normal inspection, normocephalic - Eye Eye exam: Present: other (lids and conjunctiva unremarakble). Absent: scleral icterus - ENT ENT exam: Present: normal exam, normal oropharynx - Neck Neck exam: Present: normal inspection - Respiratory Respiratory exam: Present: clear to auscultation bilaterally. Absent: rales, rhonchi, wheezes - Cardiovascular Cardiovascular exam: Present: regular rate and rhythm. Absent: diastolic murmur , JVD, systolic murmur - GI/Abdominal GI/Abdominal exam: Present: normal bowel sounds, soft. Absent: ascites, distended, mass, organomegaly, tenderness - Extremities Exam Extremities exam: Present: normal inspection, full ROM - Back Exam Back exam: Present: normal inspection - Neurological Exam Neurological exam: Present: alert, oriented X3 - Psychiatric Psychiatric exam: Present: normal affect, normal mood - Skin Skin exam: Present: normal color, warm, dry Results - Labs CBC & BMP: 03/22/16 05:03 03/22/16 05:03 Lab Results: I have reviewed the past 24 hour labs
--- NOTE | 2016-03-22 11:00 | Hospitalist Progress Note ---
Assessment and Plan (1) HTN (hypertension) Status: Acute Assessment and plan: continue with current care Current Visit: No (2) Dehydration Status: Acute Assessment and plan: improved Current Visit: Yes (3) Hypernatremia Status: Acute Assessment and plan: improved Current Visit: Yes (4) Elevated TSH Status: Acute Assessment and plan: will repeat levels when stable Current Visit: Yes (5) Altered mental status Status: Acute Assessment and plan: most likely secondary to hepatic encephalopathy, CT head-negative, BC- no growth so far -continue with lactulose -repeat ammonia level Current Visit: Yes (6) Cirrhosis Status: Acute Assessment and plan: s/p ascitic tap, he had 3300cc of fluid drained yesterday -appreciates GI's input -continue aldactone 25daily, albumin -agree to dc antibiotics, cultures were negative Current Visit: Yes (7) Hypokalemia Status: Acute Assessment and plan: will replete, bmp in am Current Visit: Yes Hospitalist: Subjective Interval history: Patient seen. No new issues. Exam - Constitutional Vitals: Period Temp Pulse Resp BP Sys/Jacob Pulse Ox Last 24 Hr 97.2 F-99.4 F 72-88 18-20 90-113/56-84 93-98 General appearance: no acute distress - Respiratory Respiratory exam: Present: clear to auscultation bilaterally, decreased breath sounds - Cardiovascular Cardiovascular exam: Present: regular rate and rhythm - GI/Abdominal GI/Abdominal exam: Present: ascites - Extremities Exam Extremities exam: Present: normal inspection Results - Labs CBC & BMP: 03/22/16 05:03 03/22/16 05:03 Lab Results: I have reviewed the past 24 hour labs
[2016-03-22] MEDS ORDERED: POTASSIUM CHLORIDE 20 MEQ/15 ML UDCUP PO ONE (11:02)
[2016-03-23 04:07] LABS: Basophils % 0.3 % (0.0-0.8); Eosinophils # 0.1 10*3/uL (0.0-0.87); Hematocrit 28.1 VOL% (42.0-52.0); Hemoglobin 8.8 GM/DL (14.0-18.0); Immature Granulocytes % 0.5 %; Immature Granulocytes Absolute 0.06 #; Lymphocytes % 15.8 % (21.2-54.2); Mean Corpuscular HGB Conc 31.3 GM/DL (32-36); Mean Corpuscular Hemoglobin 32 PG (27-34); Mean Corpuscular Volume 100.7 FL (87-102); Monocytes # 0.9 10*3/uL (0.11-0.8); Neutrophils # 9.4 10*3/uL (1.4-7.4); Neutrophils % 75.4 % (38.7-73.9); Platelet Count 160 T/CUMM (130-400); Red Blood Count 2.79 MC/CUMM (3.8-5.5); Red Cell Distribution Width 19.9 % (9.3-17.3); White Blood Count 12.5 T/CUMM (4-12)
[2016-03-23 04:39] LABS: Albumin 2.8 G/DL (3.4-5.0); Bilirubin,Total 1.9 MG/DL (0.2-1.0); Calcium 8.3 MG/DL (8.5-10.1); Osmolality,Calculated 286.7 MOS/KG (273-304); Potassium 3.9 MMOL/L (3.5-5.1); Total Protein 5.9 G/DL (6.4-8.3)
[2016-03-23] MEDS: FOLIC ACID 1 MG TABLET PO SCH (08:05)
[2016-03-23] MEDS: SPIRONOLACTONE 25 MG TABLET PO SCH (08:06)
[2016-03-23] MEDS: PANTOPRAZOLE 40 MG TABLET PO SCH (08:06)
[2016-03-23] MEDS: FUROSEMIDE 20 MG TABLET PO SCH (08:06)
[2016-03-23] MEDS: THIAMINE 100 MG TABLET PO SCH (08:06)
[2016-03-23] MEDS: PROPRANOLOL 20 MG TABLET PO SCH ×2 (08:07→21:02)
[2016-03-23] MEDS: oxyCODONE IR 5 MG TABLET PO PRN (08:07)
[2016-03-23] MEDS: ENOXAPARIN 40 MG/0.4 ML SYRINGE SUBCUT SCH (08:07)
[2016-03-23] MEDS: LACTULOSE 20 GM/30 ML UDCUP PO SCH (08:07)
[2016-03-23] MEDS: DESITIN 4OZ/NYSTATIN 15 GRAM MIXTURE PASTE TOP SCH ×2 (08:08→21:01)
--- NOTE | 2016-03-23 10:23 | Gastrointestinal Progress Note ---
Assessment and Plan (1) Cirrhosis Status: Acute Assessment and plan: 03/23-No changes at present. No report of BM. Afebrile. Plan and addendum to follow by Dr Sanchez. 03/22-Alert, oriented. Bm x 2. No c/o at present. Plan and addendum to follow by DR Sanchez. 03/19-History of alcoholic cirrhosis in past, now with ascites. Elevated LFTs ( has been baseline elevated over past several months). No new imaging on admission. IR to consult for paracentesis today. Plan and addendum to follow by Dr Sanchez. Current Visit: Yes Gastroenterology - PN: Subj Interval history: CC: Cirrhosis Pt is awake, more alert, lying in bed. He denies any pain at present. Abdomen is soft, nontender, nondistended. He is afebrile at present. No bowel movements reported today. No plans for discharge noted at present time ROS: Denies SOB or chest pain Exam (Progress Note) - Constitutional Vitals: Period Temp Pulse Resp BP Sys/Jacob Pulse Ox Last 24 Hr 97.3 F-98.4 F 75-86 16-22 94-109/53-70 92-100 - Other Additional findings: General appearance: normal weight, no acute distress - Head Head exam: Present: normal inspection, normocephalic - Eye Eye exam: Present: other (lids and conjunctiva unremarakble). Absent: scleral icterus - ENT ENT exam: Present: normal exam, normal oropharynx - Neck Neck exam: Present: normal inspection - Respiratory Respiratory exam: Present: clear to auscultation bilaterally. Absent: rales, rhonchi, wheezes - Cardiovascular Cardiovascular exam: Present: regular rate and rhythm. Absent: diastolic murmur , JVD, systolic murmur - GI/Abdominal GI/Abdominal exam: Present: normal bowel sounds, soft. Absent: ascites, distended, mass, organomegaly, tenderness - Extremities Exam Extremities exam: Present: normal inspection, full ROM - Back Exam Back exam: Present: normal inspection - Neurological Exam Neurological exam: Present: alert, oriented X3 - Psychiatric Psychiatric exam: Present: normal affect, normal mood - Skin Skin exam: Present: normal color, warm, dry Results - Labs CBC & BMP: 03/23/16 03:14 03/23/16 03:14 Lab Results: I have reviewed the past 24 hour labs
--- NOTE | 2016-03-23 11:10 | Physician Query Form ---
CLICK EDIT DOCUMENT TO SELECT QUERY ANSWER --> OK --> SIGN Patricia Fajardo RN, CCDS Certified Clinical Technical Support Technician W) [phone] (f) [phone] [email or web address] PROVIDERS: Make your selection(s) from the choices in EACH section by typing an "x" and enter comments in the comment section. Please use your independent medical judgment in providing your response. This request does not imply that any particular answer is desired or expected. CLINICAL INDICATORS: (Providers should not edit this section) "Alcoholic cirrhosis complicated by ascites and hepatic encephalopathy is slightly improved" in your clinical opinion can you please clarify the acuity of the hepatic encephalopathy. Clarify which of the following accurately represents the acuity of the above diagnosis. ( x) Acute ( ) Acute on chronic ( ) Chronic stable condition ( ) Remission ( ) Other, please specify: ( ) Clinically unable to determine COMMENTS: Use of terms such as suspected, likely, or probable (associated with a specific diagnosis that is being evaluated, monitored, or treated as if it exists) are acceptable and can be restated in the discharge summary if not ruled out. MTDD
--- NOTE | 2016-03-23 13:27 | Hospitalist Progress Note ---
Assessment and Plan (1) HTN (hypertension) Status: Acute Assessment and plan: continue with current care Current Visit: No (2) Dehydration Status: Acute Assessment and plan: improved Current Visit: Yes (3) Hypernatremia Status: Acute Assessment and plan: improved Current Visit: Yes (4) Elevated TSH Status: Acute Assessment and plan: will repeat levels when stable Current Visit: Yes (5) Altered mental status Status: Acute Assessment and plan: most likely secondary to hepatic encephalopathy, CT head-negative, BC- no growth so far -continue with lactulose -repeat ammonia level Current Visit: Yes (6) Cirrhosis Status: Acute Assessment and plan: s/p ascitic tap, he had 3300cc of fluid drained -appreciates GI's input -continue aldactone 25daily -agree to dc antibiotics, cultures were negative Current Visit: Yes (7) Hypokalemia Status: Acute Assessment and plan: will replete, bmp in am Current Visit: Yes Hospitalist: Subjective Interval history: Patient seen. He was more coherent this am. He requested for his Penaloza to be removed. Exam - Constitutional Vitals: Period Temp Pulse Resp BP Sys/Jacob Pulse Ox Last 24 Hr 97.4 F-98.4 F 75-86 16-22 94-117/53-70 95-100 General appearance: no acute distress - Respiratory Respiratory exam: Present: decreased breath sounds - Cardiovascular Cardiovascular exam: Present: regular rate and rhythm - GI/Abdominal GI/Abdominal exam: Present: ascites - Extremities Exam Extremities exam: Present: normal inspection Results - Labs CBC & BMP: 03/23/16 03:14 03/23/16 03:14 Lab Results: I have reviewed the past 24 hour labs
[2016-03-24] MEDS: oxyCODONE IR 5 MG TABLET PO PRN ×2 (00:43→20:38)
[2016-03-24 07:56] LABS: Basophils % 0.4 % (0.0-0.8); Eosinophils # 0.1 10*3/uL (0.0-0.87); Eosinophils % 1.3 % (0.00-10.9); Hematocrit 31.2 VOL% (42.0-52.0); Hemoglobin 9.8 GM/DL (14.0-18.0); Immature Granulocytes % 0.7 %; Immature Granulocytes Absolute 0.08 #; Lymphocytes # 2.2 10*3/uL (1.4-4.0); Lymphocytes % 20.1 % (21.2-54.2); Mean Corpuscular HGB Conc 31.4 GM/DL (32-36); Mean Corpuscular Hemoglobin 31 PG (27-34); Mean Platelet Volume 13.3 FL (9.6-12.0); Monocytes # 0.6 10*3/uL (0.11-0.8); Monocytes % 5.9 % (1.7-12.7); Neutrophils # 7.7 10*3/uL (1.4-7.4); Neutrophils % 71.6 % (38.7-73.9); Platelet Count 181 T/CUMM (130-400); Red Blood Count 3.12 MC/CUMM (3.8-5.5); White Blood Count 10.7 T/CUMM (4-12)
[2016-03-24 08:35] LABS: Albumin 2.6 G/DL (3.4-5.0); Bilirubin,Total 1.1 MG/DL (0.2-1.0); Calcium 8.3 MG/DL (8.5-10.1); Osmolality,Calculated 285.7 MOS/KG (273-304); Potassium 3.8 MMOL/L (3.5-5.1); Total Protein 6.1 G/DL (6.4-8.3)
[2016-03-24] MEDS: PROPRANOLOL 20 MG TABLET PO SCH ×2 (09:41→20:38)
[2016-03-24] MEDS: FUROSEMIDE 20 MG TABLET PO SCH (09:41)
[2016-03-24] MEDS: THIAMINE 100 MG TABLET PO SCH (09:41)
[2016-03-24] MEDS: FOLIC ACID 1 MG TABLET PO SCH (09:41)
[2016-03-24] MEDS: SPIRONOLACTONE 25 MG TABLET PO SCH (09:41)
[2016-03-24] MEDS: DESITIN 4OZ/NYSTATIN 15 GRAM MIXTURE PASTE TOP SCH ×2 (09:42→20:38)
[2016-03-24] MEDS: LACTULOSE 20 GM/30 ML UDCUP PO SCH (09:42)
[2016-03-24] MEDS: ENOXAPARIN 40 MG/0.4 ML SYRINGE SUBCUT SCH (09:42)
--- NOTE | 2016-03-24 09:56 | Gastrointestinal Progress Note ---
Assessment and Plan (1) Cirrhosis Status: Acute Assessment and plan: 03/24-No changes, BM x 2. Tolerating diet. Plan and addendum to follow by Dr Sanchez. 03/23-No changes at present. No report of BM. Afebrile. Plan and addendum to follow by Dr Sanchez. 03/22-Alert, oriented. Bm x 2. No c/o at present. Plan and addendum to follow by DR Sanchez. 03/19-History of alcoholic cirrhosis in past, now with ascites. Elevated LFTs ( has been baseline elevated over past several months). No new imaging on admission. IR to consult for paracentesis today. Plan and addendum to follow by Dr Sanchez. Current Visit: Yes Gastroenterology - PN: Subj Interval history: CC: Cirrhosis Pt is awake, alert today. States he is feeling about the same. He denies any abdominal pain. He has had a reported bowel movement today. He is having moderate intake at meals. His weight shows him down 6kg today however not certain as to this accuracy. His abdomen is soft, nontender to palpation, nondistended. Ammonia level is down slightly at 54. ROS: Denies SOB or chest pain Exam (Progress Note) - Constitutional Vitals: Period Temp Pulse Resp BP Sys/Jacob Pulse Ox Last 24 Hr 97.4 F-99.3 F 78-85 16-21 99-117/61-71 93-99 General appearance: normal weight, no acute distress - Head Head exam: Present: normal inspection, normocephalic - Eye Eye exam: Present: other (lids and conjunctiva unremarakble). Absent: scleral icterus - ENT ENT exam: Present: normal exam, normal oropharynx - Neck Neck exam: Present: normal inspection - Respiratory Respiratory exam: Absent: rales, rhonchi, wheezes - Cardiovascular Cardiovascular exam: Present: regular rate and rhythm. Absent: diastolic murmur , JVD, systolic murmur - GI/Abdominal GI/Abdominal exam: Present: normal bowel sounds, soft. Absent: ascites, distended, mass, organomegaly, tenderness - Extremities Exam Extremities exam: Present: normal inspection, full ROM - Back Exam Back exam: Present: normal inspection - Neurological Exam Neurological exam: Present: alert, oriented X3 - Psychiatric Psychiatric exam: Present: normal affect, normal mood - Skin Skin exam: Present: normal color, warm, dry Results - Labs CBC & BMP: 03/24/16 07:16 03/24/16 07:16 Lab Results: I have reviewed the past 24 hour labs
--- NOTE | 2016-03-24 11:33 | Hospitalist Progress Note ---
<Myrtle Orlando - Last Filed: 03/24/16 11:26> Assessment and Plan - Time spent with patient Time spent with patient: Greater than 30 minutes (due to assessment, plan and documentation.) (1) Altered mental status Status: Acute Assessment and plan: still somewhat altered c/w hepatic encephalopathy. Current Visit: Yes (2) Cirrhosis Status: Acute Current Visit: Yes (3) Dehydration Status: Acute Current Visit: Yes (4) Elevated TSH Status: Acute Current Visit: Yes (5) Hypernatremia Status: Resolved Current Visit: Yes (6) Hypokalemia Status: Acute Current Visit: Yes Hospitalist: Subjective Interval history: Mr. Pepper was seen on rounds lying in bed today. He is sleeping, and will open his eyes, but quickly goes back to sleep. He has been tapped with 3300 cc' s removed. His abdomen is soft and nontender this morning. His labs are stable to improved this morning. We will continue to follow along with GI. Exam - Constitutional Vitals: Period Temp Pulse Resp BP Sys/Jacob Pulse Ox Last 24 Hr 97.4 F-99.3 F 78-85 16-21 99-117/61-71 93-99 General appearance: normal weight, no acute distress - Head Head exam: Present: normal inspection, normocephalic - Eye Eye exam: Present: EOMI. Absent: scleral icterus Pupils: Present: LE[place], normal accommodation - ENT ENT exam: Present: normal exam, normal oropharynx - Neck Neck exam: Present: normal inspection. Absent: lymphadenopathy - Respiratory Respiratory exam: Present: clear to auscultation bilaterally. Absent: accessory muscle use - Cardiovascular Cardiovascular exam: Present: regular rate and rhythm. Absent: carotid bruit - GI/Abdominal GI/Abdominal exam: Present: normal bowel sounds, soft. Absent: tenderness - Extremities Exam Extremities exam: Present: normal inspection. Absent: edema - Back Exam Back exam: Present: normal inspection. Absent: muscle spasm - Neurological Exam Neurological exam: Present: other (sleepy, but arousable. ) - Psychiatric Psychiatric exam: Present: normal affect, normal mood - Skin Skin exam: Present: normal color, warm, dry, intact Results - Labs CBC & BMP: 03/24/16 07:16 03/24/16 07:16 Lab Results: I have reviewed the past 24 hour labs <Phyllis Mott - Last Filed: 03/24/16 17:25> Assessment and Plan (1) HTN (hypertension) Status: Acute Current Visit: No (2) Dehydration Status: Acute Current Visit: Yes (3) Hypernatremia Status: Resolved Current Visit: Yes (4) Elevated TSH Status: Acute Current Visit: Yes (5) Altered mental status Status: Acute Current Visit: Yes (6) Cirrhosis Status: Acute Current Visit: Yes (7) Hypokalemia Status: Acute Current Visit: Yes Hospitalist: Subjective Interval history: He states he wants to go home, we are planning to dc in am with home health Exam - Constitutional Vitals: Period Temp Pulse Resp BP Sys/Jacob Pulse Ox Last 24 Hr 97.4 F-99.3 F 78-83 16-20 101-117/61-71 93-99 Results - Labs CBC & BMP: 03/24/16 07:16 03/24/16 07:16
[2016-03-24] MEDS: PANTOPRAZOLE 40 MG TABLET PO SCH (13:00)
[2016-03-25] MEDS: PROPRANOLOL 20 MG TABLET PO SCH ×2 (09:00→21:04)
[2016-03-25] MEDS: ENOXAPARIN 40 MG/0.4 ML SYRINGE SUBCUT SCH (09:30)
[2016-03-25] MEDS: PANTOPRAZOLE 40 MG TABLET PO SCH (09:30)
[2016-03-25] MEDS: THIAMINE 100 MG TABLET PO SCH (09:30)
[2016-03-25] MEDS: FUROSEMIDE 20 MG TABLET PO SCH (09:30)
[2016-03-25] MEDS: SPIRONOLACTONE 25 MG TABLET PO SCH (09:31)
[2016-03-25] MEDS: DESITIN 4OZ/NYSTATIN 15 GRAM MIXTURE PASTE TOP SCH ×2 (09:31→21:04)
[2016-03-25] MEDS: FOLIC ACID 1 MG TABLET PO SCH (09:31)
[2016-03-25] MEDS: LACTULOSE 20 GM/30 ML UDCUP PO SCH (09:31)
--- NOTE | 2016-03-25 10:49 | Gastrointestinal Progress Note ---
Assessment and Plan (1) Cirrhosis Status: Acute Assessment and plan: 22-NO changes. Weight unchanged. Continues to have BM. Plan and addendum to follow by Dr Sanchez. 03/24-No changes, BM x 2. Tolerating diet. Plan and addendum to follow by Dr Sanchez. 03/23-No changes at present. No report of BM. Afebrile. Plan and addendum to follow by Dr Sanchez. 03/22-Alert, oriented. Bm x 2. No c/o at present. Plan and addendum to follow by DR Sanchez. 03/19-History of alcoholic cirrhosis in past, now with ascites. Elevated LFTs ( has been baseline elevated over past several months). No new imaging on admission. IR to consult for paracentesis today. Plan and addendum to follow by Dr Sanchez. Current Visit: Yes Gastroenterology - PN: Subj Interval history: CC: Cirrhosis Pt is awake, family at side. States he is feeling about the same today however he seems more alert. Denies any abdominal pain, nausea or vomiting. He states he is ready to go home. Abdomen is soft, nontender. Appetite is fair at this time. Weight is unchanged. ROS: Denies SOB or chest pain Exam (Progress Note) - Constitutional Vitals: Period Temp Pulse Resp BP Sys/Jacob Pulse Ox Last 24 Hr 97.3 F-100.9 F 83-86 16-20 95-140/55-74 95-99 - Other Additional findings: General appearance: normal weight, no acute distress - Head Head exam: Present: normal inspection, normocephalic - Eye Eye exam: Present: other (lids and conjunctiva unremarakble). Absent: scleral icterus - ENT ENT exam: Present: normal exam, normal oropharynx - Neck Neck exam: Present: normal inspection - Respiratory Respiratory exam: Absent: rales, rhonchi, wheezes - Cardiovascular Cardiovascular exam: Present: regular rate and rhythm. Absent: diastolic murmur , JVD, systolic murmur - GI/Abdominal GI/Abdominal exam: Present: normal bowel sounds, soft. Absent: ascites, distended, mass, organomegaly, tenderness - Extremities Exam Extremities exam: Present: normal inspection, full ROM - Back Exam Back exam: Present: normal inspection - Neurological Exam Neurological exam: Present: alert, oriented X3 - Psychiatric Psychiatric exam: Present: normal affect, normal mood - Skin Skin exam: Present: normal color, warm, dry Results - Labs CBC & BMP: 03/24/16 07:16 03/24/16 07:16 Lab Results: I have reviewed the past 24 hour labs
--- NOTE | 2016-03-25 11:22 | Discharge Summary ---
<Myrtle Orlando - Last Filed: 03/25/16 11:26> Hospital Course - Hospital Course Hospital Course: Mr. Pepper was admitted on 03/17 with AMS, dehydration. He has been under the care of his sister who he claimed had not been taking care of him. He was found to have an elevated TSH and hypernatremia as well. His fluids were switched to 1 /2 NS. He also has a hx of cirrhosis with ascites. CT was performed and was negative. Paracentesis was done on 03/19 and obtained 3300 cc's of fluid. He was started on Aldactone [address] Jaime Sanchez was consulted for GI due to cirrhosis and ascites. He was empirically treated for SBP until fluid studies returned. His AMS was most likely secondary to hepatic encephalpoathy- CT head was negative and blood cx's were negative. He has a poor prognosis given his end stage liver disease. After discussing with family he continues to drink and use meth. He will be discharged home today. Physical Therapy will teach family Physical Therapy for bedside treatment. - Time spent with patient Time with patient DS: Greater than 30 minutes (due to plan, doc and med rec.) Diagnosis - Discharge Diagnosis (1) Altered mental status Status: Acute (2) Cirrhosis Status: Acute (3) Dehydration Status: Acute (4) Elevated TSH Status: Acute (5) Hypernatremia Status: Resolved (6) Hypokalemia Status: Acute Discharge Plan - Discharge Data Disposition: Disch To Home/Self Care - Discharge Medications New Furosemide Tab [Lasix Tab] 20 mg PO DAILY #30 tablet Spironolactone [Aldactone] 50 mg PO DAILY #30 tablet Continue Folic Acid Tab 1 mg PO DAILY tablet Lactulose Liquid [Chronulac] 20 gm PO DAILY #30 udcup Propranolol Tab [Inderal Tab] 20 mg PO BID #60 tablet Thiamine Tab [Vitamin B1 Tab] 100 mg PO DAILY tablet Esomeprazole Magnesium [Nexium] 40 mg PO DAILY #30 capsule oxyCODONE/ACETAMINOPHEN 5-325 [Percocet 5-325] 1 tablet PO Q4H PRN #30 tablet PRN Reason: Pain Moderate (4-7) - Follow Up or Referral - Forms/Instructions Exam - Constitutional Vitals: Period Temp Pulse Resp BP Sys/Jacob Pulse Ox Last 24 Hr 97.3 F-100.9 F 83-86 16-20 95-102/55-66 95-99 Discharge Results Procedures and tests throughout hospitalization: Pending Orders 03/17/16 18:00 Wound Culture Routine DS: Provider Date of admission: 03/17/16 10:37 Primary care physician: . No PCP Attending physician on admission: Phyllis Mott MD Consults: 03/17/16 10:46 Consult to Pharmacy [CONS] Routine Reason for Pharmacy Consult: Adjust Meds Renal Funct 03/17/16 12:08 Consult to Dietitian [CONS] Routine Reason for Dietitian: Dietary Consult 03/17/16 17:58 Consult to Case Mgmt/Social Srvs [CONS] Routine Reason for Case Mgmt/Social Srvs: Discharge Planning Consult to Physical Therapy [CONS] Routine Reason for Physical Therapy: Evaluate and Treat Consult to Wound Care - [place] [CONS] Routine Reason for Wound Care: Wound Care Management 03/19/16 11:21 Consult to Physician [CONS] Routine Comment: Consulting Provider: Rodrick Sanchez Consult to Specialist Group: Gastroenterology When should Consulting Provider be notified: Now Person Notified: Trista Goodwin Date Notified: 03/19/16 Time Notified: 11:32 03/19/16 11:24 Consult to Dietitian [CONS] Routine Reason for Dietitian: Dietary Consult Discharging clinician: Myrtle Orlando NP Expected date of discharge: 03/25/16 <Phyllis Mott - Last Filed: 03/25/16 12:30> Hospital Course - Hospital Course Hospital Course: patients TSH was high and this needs to be rechecked as outpatient.We tried to get home health but couldnt due to lack of insurance - Time spent with patient Time with patient DS: Greater than 30 minutes Diagnosis - Discharge Diagnosis (1) HTN (hypertension) Status: Acute (2) Dehydration Status: Acute (3) Hypernatremia Status: Resolved (4) Elevated TSH Status: Acute (5) Altered mental status Status: Acute (6) Cirrhosis Status: Acute (7) Hypokalemia Status: Acute Discharge Plan - Discharge Data Condition at Discharge: Stable Discharge Diet: heart healthy Activity: resume usual activities as tolerated - Forms/Instructions Additional Discharge Instructions: Follow with pCP in 1week
[2016-03-26] MEDS: PANTOPRAZOLE 40 MG TABLET PO SCH (09:31)
[2016-03-26] MEDS: THIAMINE 100 MG TABLET PO SCH (09:31)
[2016-03-26] MEDS: PROPRANOLOL 20 MG TABLET PO SCH (09:31)
[2016-03-26] MEDS: LACTULOSE 20 GM/30 ML UDCUP PO SCH (09:31)
[2016-03-26] MEDS: SPIRONOLACTONE 25 MG TABLET PO SCH (09:32)
[2016-03-26] MEDS: ENOXAPARIN 40 MG/0.4 ML SYRINGE SUBCUT SCH (09:32)
[2016-03-26] MEDS: FOLIC ACID 1 MG TABLET PO SCH (09:32)
[2016-03-26] MEDS: FUROSEMIDE 20 MG TABLET PO SCH (09:32)
[2016-03-26] MEDS: DESITIN 4OZ/NYSTATIN 15 GRAM MIXTURE PASTE TOP SCH (09:33)
[2016-03-26 18:23] VITALS: BP 98/67
== END 2016-03-26 17:45 | disposition home or self-care (01) | DRG 442 ==
LOC: EDBD → EDUNIT# → N.ED 07:34 → N.EDINP 10:36 → N.2E 11:50
PROVIDERS: ADMIT Internal Medicine; ATTEND Internal Medicine